=== PATIENT | female | born 1995 | race Caucasian/White ===

== ENCOUNTER 2020-09-05 18:05 | Emergency (ER) | payer MEDICAID, SELFPAY ==
--- NOTE | 2020-09-05 | XR_ITS ---
EXAMINATION: XR CHEST CLINICAL INFORMATION: Cough COMPARISON: Overt 2013 TECHNIQUE: Frontal view of the chest was obtained. FINDINGS: There is a new left lower lobe pneumonia compared to the prior study. Heart size normal. The right lung is clear. No pleural effusions seen. XR/XR chest 1V IMPRESSION: Left lower lobe pneumonia
[2020-09-05 19:02] VITALS: BP 135/71; PULSE 71; RESP 18; TEMP 36.6; O2SAT 97; BMI 45.3
--- NOTE | 2020-09-05 21:28 | ED.GENADULT ---
HPI - General Adult General Chief complaint: General Medical Stated complaint: bodyaches, chills Time Seen by Provider: 09/05/20 22:25 Source: patient Mode of arrival: ambulatory Limitations: no limitations History of Present Illness HPI narrative: Patient presents to ED for coughing, headache, and body aches. Patient denies any shortness of breath. Patient states no weakness. Patient unaware if he is exposed to COVID-19 virus Related Data Previous Rx's Medication Instructions Recorded amoxicillin 1,000 mg PO TID #30 tab 09/05/20 doxycycline monohydrate 100 mg PO BID #14 cap 09/05/20 ibuprofen 400 mg PO Q6H PRN #28 tab 09/05/20 Allergies Allergy/AdvReac Type Severity Reaction Status Date / Time No Known Allergies Allergy Unverified 07/15/20 16:16 Review of Systems Review of Systems: Yes all other systems are reviewed and are negative Constitutional: Constitutional: Reports as per HPI, Reports no additional constitutional complaints, Reports body ache(s) and Reports headache(s) Eyes: Eyes: Reports as per HPI and Reports no additional eye complaints ENT: Reports system reviewed and no additional complaints, except as documented, Reports as per HPI and Reports headache(s) Cardiovascular: Cardiovascular: Reports as per HPI, Reports no additional cardiovascular complaints, Denies chest pain, Denies chest pain at rest and Denies chest pain with activity Respiratory: Respiratory: Reports as per HPI, Reports no additional respiratory complaints and Reports pain with cough Gastrointestinal: Gastrointestinal: Reports as per HPI and Reports no additional gastrointestinal complaints Musculoskeletal: Musculoskeletal: Reports no additional musculoskeletal complaints and Reports as per HPI Neurologic: Reports system reviewed and no additional complaints, except as documented, Reports as per HPI and Reports headache(s) [facility] Past Medical History Medical History (Updated 09/06/20 @ 00:12 by Rosalio Erazo) Bipolar depression Surgical History (Updated 09/05/20 @ 19:04 by Amara Encinas) Hx of knee surgery Social History Social History Advance Directives: No Advance Directives Information Provided: Yes Physical Exam Vital Signs: Vital Signs: Last Vital Signs Temp 98 F 09/05/20 19:02 Pulse 71 09/05/20 19:02 Resp 18 09/05/20 19:02 BP 135/71 09/05/20 19:02 Pulse Ox 97 09/05/20 19:02 Body Mass Index 45.3 Const: General: cooperative, healthy appearing, comfortable, no acute distress, well developed and alert Orientation/consciousness: patient oriented x3 HENMT: Head: Yes normal to inspection and Yes No palpable skull fracture present Eyes: General: appearance normal, both eyes and all related structures Visual Ceja: normal visual ceja by confrontation Neck: Neck: Yes normal visual inspection, Yes full ROM, Yes no lymphadenopathy, Yes no meningeal signs and Yes trachea midline Chest: Chest palpation & inspection: normal inspection of the chest, normal palpation of entire chest wall and no localized rib tenderness Resp: Effort & Inspection: normal respiratory effort and able to speak in complete sentences Auscultation: clear to auscultation bilaterally, no crackles, rales, no rhonchi and no wheezes Cardio: Jugular venous distension: no JVD Heart sounds: S1 normal heart sound present and S2 normal heart sound present GI: Inspection: Yes normal to inspection and No abdominal wall ecchymosis Palpation (GI): Soft to palpation, not firm, nontender and no guarding : General: No CVA tenderness and Yes no CVA tenderness Back/Spine/Pelvis: Back: no CVA tenderness, No CVA tenderness and No back tenderness Skin: General skin exam: no rashes or lesions noted Neuro: General: patient oriented x3, no meningeal signs and CN's II-XI intact bilaterally Cranial nerves: Yes CN's II-XII intact bilaterally Psych: Appearance: grossly normal, well kempt and not disheveled Course Course Course Narrative: patient not in any distress. Patient is sent for chest x-ray, COVID swab, and rapid strep. Reevaluation(s) Reevaluation #1: chest x-ray shows left lower lobe pneumonia. Patient is not any distress. Patient will be discharged with antibiotics and told to follow-up with PCP. Patient educated on self Dallin isolation at a COVID swab come back. Time: 21:49 Medical Decision Making MDM Narrative Medical decision making narrative: pneumonia Discharge Plan Discharge Clinical Impression: Pneumonia Patient Disposition: Home, Self-Care Instructions: Community Acquired Pneumonia (ED) Additional Instructions: return to the ED immediately for any chest pain, shortness of breath, coughing up blood, weakness, or any other concerning symptoms. Recommend 14 days self-isolation and COVID test come back positive. Please follow-up with the PCP Prescriptions: New amoxicillin 500 mg tablet 1,000 mg PO TID Qty: 30 RF: 0 doxycycline monohydrate 100 mg capsule 100 mg PO BID Qty: 14 RF: 0 ibuprofen 400 mg tablet 400 mg PO Q6H PRN (Reason: fever or pain) Qty: 28 RF: 0 Interventions: ED Discharge Assessment Last Done: 09/05/20 22:19 Discharge Date/Time: 09/05/20 22:35 Print Language: Bulgarian
[2020-09-05] MEDS: Amoxicillin 500 MG CAPSULE 1000 MG PO (22:30)
== END 2020-09-05 22:35 | disposition home or self-care (01) ==
PROVIDERS: Emergency Provider Emergency Medicine; PCP Pediatrics
DX: J18.9 Pneumonia, unspecified organism (principal); R05 Cough; M79.10 Myalgia, unspecified site; Z20.828 Contact with and (suspected) exposure to other viral communicable diseases; Z79.899 Other long term (current) drug therapy
CPT/HCPCS: 71045; 87071; 87880; 99283; U0003

== ENCOUNTER 2020-09-06 10:33 | Emergency (ER) | payer MEDICAID, SELFPAY ==
[2020-09-06 11:03] VITALS: BP 156/81; PULSE 57; RESP 16; TEMP 37.4; O2SAT 99; BMI 45.3
--- NOTE | 2020-09-06 12:11 | ECG_ITS ---
Test Reason : CHEST DARI Blood Pressure : / mmHG Vent. Rate : 045 BPM Atrial Rate : 045 BPM P-R Int : 138 ms QRS Dur : 080 ms QT Int : 424 ms P-R-T Axes : 024 005 -17 degrees QTc Int : 366 ms Sinus bradycardia Nonspecific T wave abnormality Abnormal ECG When compared with ECG of 04-JAN-2012 20:30, Vent. rate has decreased BY 61 BPM T wave inversion now evident in Anterior leads Inferior leads Referred By: Mary Richardson Electronically Signed By:GALINA GALEANO MD
--- NOTE | 2020-09-06 12:12 | ED.GENADULT ---
HPI - General Adult General Chief complaint: General Medical Stated complaint: pneumonia,coughing Time Seen by Provider: 09/06/20 12:05 Source: patient Mode of arrival: ambulatory Limitations: no limitations History of Present Illness HPI narrative: 24 yo female previously healthy here with chest pain with coughing, fatigue. Seen here yesterday and diagnosed with LLL PNA yesterday.Started on doxycycline and amoxicillin. Took one dose of each medicine last evening. Here with continued symptoms of cough, chest discomfort with coughing, fatigue, low grade fevers. No SOB, leg swelling or pain. Onset (ago): day(s) Location: chest and back Radiation: non-radiation Severity: moderate Quality: sharp Pain Consistency: constant Relieving factors: none Exacerbating factors: none Associated symptoms: denies other symptoms Related Data Previous Rx's Medication Instructions Recorded amoxicillin 1,000 mg PO TID #30 tab 09/05/20 doxycycline monohydrate 100 mg PO BID #14 cap 09/05/20 ibuprofen 400 mg PO Q6H PRN #28 tab 09/05/20 Allergies Allergy/AdvReac Type Severity Reaction Status Date / Time No Known Allergies Allergy Unverified 07/15/20 16:16 Review of Systems Review of Systems: Yes all other systems are reviewed and are negative Constitutional: Constitutional: Reports no additional constitutional complaints, Denies body ache(s), Denies chills, Reports fatigue, Reports fever(s), Denies headache(s) and Denies weakness Eyes: Eyes: Reports no additional eye complaints and Denies change in vision ENT: Reports system reviewed and no additional complaints, except as documented, Denies dizziness, Denies headache(s), Denies nasal congestion, Denies nasal discharge and Denies neck pain Cardiovascular: Cardiovascular: Reports no additional cardiovascular complaints, Reports chest pain, Denies leg edema and Denies dyspnea Respiratory: Respiratory: Reports no additional respiratory complaints, Reports cough and Denies dyspnea Gastrointestinal: Gastrointestinal: Reports no additional gastrointestinal complaints, Denies abdominal pain, Denies diarrhea, Denies nausea and Denies vomiting Genitourinary: Genitourinary: Reports no additional female genitourinary complaints and Denies urinary incontinence Musculoskeletal: Musculoskeletal: Reports no additional musculoskeletal complaints, Denies back pain, Denies arthralgias, Denies joint swelling, Denies neck pain, Denies numbness and Denies tingling Integumentary/Breasts: Skin/Breast: Reports system reviewed and no additional complaints, except as docu and Denies rash Neurologic: Reports system reviewed and no additional complaints, except as documented, Denies Abnormal speech present, Denies dizziness, Denies headache(s), Denies numbness, Denies tingling and Denies weakness Endocrine: Endocrine: Reports fatigue [facility] Past Medical History Source: obtained from family and nursing notes reviewed Medical History Bipolar depression Surgical History Hx of knee surgery Social History Social History Alcohol intake: never Smoking Status: Never smoker Use of substances other than those prescribed or required for medical reasons: No Advance Directives: No Advance Directives Information Provided: Yes Physical Exam Vital Signs: Vital Signs: Last Vital Signs Temp 99.3 F 09/06/20 11:03 Pulse 50 09/06/20 13:11 Resp 22 H 09/06/20 13:11 BP 125/38 L 09/06/20 13:11 Pulse Ox 98 09/06/20 16:42 Body Mass Index 45.3 Const: General: cooperative, healthy appearing, comfortable and no acute distress Orientation/consciousness: patient oriented x3 Limitations: no limitations HENMT: Head: Yes normal to inspection Ears: hearing grossly normal bilaterally General nose exam: Normal external nose present Face and sinus: Yes normal facial exam Mouth: Normal oral and palatal mucosa present Throat: Yes posterior oropharynx normal Eyes: General: appearance normal, both eyes and all related structures Pupils: Equal, round and reactive pupils present Neck: Neck: Yes normal visual inspection Chest: Other: central chest tender to palpate, worsened with deep breathing and movement Chest palpation & inspection: normal inspection of the chest Resp: Effort & Inspection: normal respiratory effort Auscultation: clear to auscultation bilaterally Cardio: Rate: regular rate Rhythm: regular rhythm Peripheral pulses: Peripheral pulses 2+ throughout GI: Inspection: Yes normal to inspection Palpation (GI): Soft to palpation and nontender Auscultation: normal bowel sounds Back/Spine/Pelvis: Thoracic/Lumbar Spine: thoracic and lumbar spine normal to inspection Skin: General skin exam: no rashes or lesions noted Neuro: General: patient oriented x3, no focal motor deficits and normal sensation to monofilament Cranial nerves: Yes Equal, round and reactive pupils present Cognition (Neuro): normal cognition Speech: No Abnormal speech present Gait exam (Neuro): Normal gait present Motor exam (neuro): 5/5 motor strength present throughout Extrem: General: Yes normal to inspection Course Course Course Narrative: 24-year-old female here with known left lower lobe pneumonia who returns today with continued cough, musculoskeletal chest pain, fatigue and low-grade fevers. On arrival she has stable vital signs. She appears well. She is very musculoskeletal pain on exam over her central chest and back. No shortness of breath. lung sounds clear. Oxygen saturation 99%. Will check labs, EKG, give analgesia and re-assess. 1605- labs unremarkable. EKG unremarkable. Patient reports feeling improved after Toradol and IV fluids. We discussed with the patient that she should continue to take her antibiotics, alternate Motrin and Tylenol for discomfort as needed.Reviewed worrisome signs and symptoms and when to return to the emergency department. Comfortable discharge home. Medical Decision Making MDM Narrative Medical decision making narrative: Likely pneumonia based on imaging from yesterday. Could be viral syndrome and COVID testing is pending. Could be chest wall strain secondary to coughing. Less likely ACS with negative troponin and EKG. Less likely PE with no clinical signs or symptoms of PE Or DVT. No hypoxia or tachycardia. Medical Records Medical records reviewed: Yes I reviewed the patient's medical records. Lab Data Lab results reviewed: Yes I reviewed the patient's lab results. Result diagrams: 09/06/20 12:28 09/06/20 12:28 Labs: Lab Results 09/06/20 09/06/20 09/06/20 Range/Units 12:28 12:28 12:28 WBC 5.6 (4.8-10.8) X10*3/uL RBC 3.96 L (4.20-5.50) X10*6/uL Hgb 12.7 (12.0-16.0) g/dl Hct 37.3 (37-47) % MCV 94.2 (80-98) fL MCH 32.1 (27.0-33.0) pg MCHC 34.0 (31.0-35.0) g/dl RDW 11.9 (11.0-16.0) % Plt Count 218 (160-400) X10*3/uL MPV 10.6 (9.4-12.3) fL Immature Gran % (Auto) 0.2 (0.0-0.4) % Neut % (Auto) 53.0 (45-73) % Lymph % (Auto) 32.4 (20-40) % [place] % (Auto) 8.6 (2-11) % Eos % (Auto) 5.4 H (0-4) % Baso % (Auto) 0.4 (0-2) % Lymph # (Auto) 1.8 (1.2-4.9) X10*3/uL [place] # (Auto) 0.5 (0.1-1.2) X10*3/uL Eos # (Auto) 0.3 (0.0-0.4) X10*3/uL Baso # (Auto) 0.0 (0.0-0.2) X10*3/uL Abs Immat Gran (auto) 0.01 (0.00-0.03) X10*3/uL Absolute Neuts (auto) 3.0 (2.0-8.3) X10*3/uL Absolute Nucleated RBC 0.000 (0.0-0.012) X10*3/uL Nucleated RBC % (auto) 0.0 (0.0-0.2) /100WBC Sodium 141 (135-145) mmol/L Potassium 3.8 (3.3-5.1) mmol/l Chloride 107 (96-108) mmol/L Carbon Dioxide 29 (22-29) mmol/L Anion Gap 9 L (12-20) BUN 7 L (9-16) mg/dL Creatinine 0.98 (0.5-1.4) mg/dL Estim Creat Clear Calc 99.2 Estimated GFR > 60 Random Glucose 90 (60-115) mg/dL Lactic Acid 1.0 (0.5-2.0) mmol/L Calcium 8.4 (8.4-10.2) mg/dL Magnesium 2.0 (1.6-2.6) mg/dL Total Bilirubin 0.3 (0.0-1.0) mg/dL Direct Bilirubin < 0.2 (0.0-0.5) mg/dL AST 36 H (5-31) U/L ALT 53 H (0-31) U/L Alkaline Phosphatase 60 (39-117) U/L Troponin I High Sens (<3.5-17.0) ng/L Total Protein 6.4 L (6.5-8.0) g/dL Albumin 3.6 (3.5-5.0) g/dL 09/06/20 Range/Units 15:03 WBC (4.8-10.8) X10*3/uL RBC (4.20-5.50) X10*6/uL Hgb (12.0-16.0) g/dl Hct (37-47) % MCV (80-98) fL MCH (27.0-33.0) pg MCHC (31.0-35.0) g/dl RDW (11.0-16.0) % Plt Count (160-400) X10*3/uL MPV (9.4-12.3) fL Immature Gran % (Auto) (0.0-0.4) % Neut % (Auto) (45-73) % Lymph % (Auto) (20-40) % [place] % (Auto) (2-11) % Eos % (Auto) (0-4) % Baso % (Auto) (0-2) % Lymph # (Auto) (1.2-4.9) X10*3/uL [place] # (Auto) (0.1-1.2) X10*3/uL Eos # (Auto) (0.0-0.4) X10*3/uL Baso # (Auto) (0.0-0.2) X10*3/uL Abs Immat Gran (auto) (0.00-0.03) X10*3/uL Absolute Neuts (auto) (2.0-8.3) X10*3/uL Absolute Nucleated RBC (0.0-0.012) X10*3/uL Nucleated RBC % (auto) (0.0-0.2) /100WBC Sodium (135-145) mmol/L Potassium (3.3-5.1) mmol/l Chloride (96-108) mmol/L Carbon Dioxide (22-29) mmol/L Anion Gap (12-20) BUN (9-16) mg/dL Creatinine (0.5-1.4) mg/dL Estim Creat Clear Calc Estimated GFR Random Glucose (60-115) mg/dL Lactic Acid (0.5-2.0) mmol/L Calcium (8.4-10.2) mg/dL Magnesium (1.6-2.6) mg/dL Total Bilirubin (0.0-1.0) mg/dL Direct Bilirubin (0.0-0.5) mg/dL AST (5-31) U/L ALT (0-31) U/L Alkaline Phosphatase (39-117) U/L Troponin I High Sens < 3.5 (<3.5-17.0) ng/L Total Protein (6.5-8.0) g/dL Albumin (3.5-5.0) g/dL ECG Data Attestation: I personally reviewed and interpreted this ECG as follows: Interpretation: Sinus bradycardia with rate 45, normal pr, normal qrs, normal qt, nonspecific ST changes Discharge Plan Discharge Clinical Impression: Pneumonia Qualifiers: Pneumonia type: due to unspecified organism Laterality: left Lung location: lower lobe of lung Qualified Code(s): J18.9 - Pneumonia, unspecified organism Patient Disposition: Home, Self-Care Instructions: Bacterial Pneumonia (ED) Additional Instructions: continue taking her antibiotics Alternate Motrin and Tylenol for pain or fever Prescriptions: No Action amoxicillin 500 mg tablet 1,000 mg PO TID Qty: 30 RF: 0 doxycycline monohydrate 100 mg capsule 100 mg PO BID Qty: 14 RF: 0 ibuprofen 400 mg tablet 400 mg PO Q6H PRN (Reason: fever or pain) Qty: 28 RF: 0 Referrals: [facility] [place] [Primary Care Provider] - 2 days
[2020-09-06 12:40] LABS: MANUAL DIFF FLAG NO
[2020-09-06 12:46] LABS: Basophils Percent Auto 0.4 % (0-2); Eosinophils Absolute Auto 0.3 X10*3/uL (0.0-0.4); Eosinophils Percent Auto 5.4 % (0-4); Hematocrit 37.3 % (37-47); Hemoglobin 12.7 g/dl (12.0-16.0); Imm Gran Abs Auto 0.01 X10*3/uL (0.00-0.03); Imm Gran Pct Auto 0.2 % (0.0-0.4); Lymphocytes Absolute Auto 1.8 X10*3/uL (1.2-4.9); Lymphocytes Percent Auto 32.4 % (20-40); Mean Corpuscular Hemoglobin 32.1 pg (27.0-33.0); Mean Corpuscular Volume 94.2 fL (80-98); Mean Platelet Volume 10.6 fL (9.4-12.3); Monocytes Absolute Auto 0.5 X10*3/uL (0.1-1.2); Monocytes Percent Auto 8.6 % (2-11); Platelet Count 218 X10*3/uL (160-400); Red Blood Count 3.96 X10*6/uL (4.20-5.50); Red Cell Distribution Width 11.9 % (11.0-16.0); White Blood Count 5.6 X10*3/uL (4.8-10.8)
[2020-09-06] MEDS: Ketorolac Tromethamine 30 MG/ML VIAL IVPUSH (12:49)
[2020-09-06] MEDS: 0.9 % Sodium Chloride 1,000 ML 999 ML IV (12:49)
[2020-09-06 13:10] LABS: Alanine Aminotransferase 53 U/L (0-31); Albumin Level 3.6 g/dL (3.5-5.0); Alkaline Phosphatase 60 U/L (39-117); Aspartate Amino Transferase 36 U/L (5-31); Blood Urea Nitrogen 7 mg/dL (9-16); Calcium 8.4 mg/dL (8.4-10.2); Creatinine Clr Calc Pharmacy 99.2; Estimated Glomerular Filt Rate > 60; Glucose Random 90 mg/dL (60-115); Total Protein 6.4 g/dL (6.5-8.0)
[2020-09-06 13:11] VITALS: BP 125/38; PULSE 50; RESP 22; O2SAT 99
[2020-09-06 13:27] LABS: Anion Gap 9 (12-20); Bilirubin Direct < 0.2 mg/dL (0.0-0.5); Bilirubin Total 0.3 mg/dL (0.0-1.0); Carbon Dioxide 29 mmol/L (22-29); Chloride 107 mmol/L (96-108); Potassium 3.8 mmol/l (3.3-5.1); Sodium 141 mmol/L (135-145)
[2020-09-06 15:43] LABS: Troponin-I High Sensitivity < 3.5 ng/L (<3.5-17.0)
[2020-09-06 16:42] VITALS: O2SAT 98
== END 2020-09-06 17:21 | disposition home or self-care (01) ==
PROVIDERS: Nurse Practitioner Family; Emergency Provider Emergency Medicine
DX: J18.9 Pneumonia, unspecified organism (principal); Z20.828 Contact with and (suspected) exposure to other viral communicable diseases; Z79.899 Other long term (current) drug therapy
CPT/HCPCS: 36415; 80048; 80076; 83605; 83735; 84484; 85025; 87040; 93005; 96361; 96374; 99284; J1885

== ENCOUNTER 2021-02-02 12:11 | Emergency (ER) | payer MEDICAID, SELFPAY ==
--- NOTE | ~2021-02-02 | XR_ITS ---
EXAMINATION: XR KNEE, LEFT CLINICAL INFORMATION: Twisting injury COMPARISON: February 07, 2018 TECHNIQUE: Four views of the left knee. FINDINGS: There is no evidence of acute fracture or dislocation of the left knee. There is a left knee effusion present. Joint spaces are maintained. There are some mixed lytic and sclerotic regions seen about the distal femur and proximal tibia with the appearance of cruciate ligament repair. A density seen on AP view between the tibial spines. XR/XR knee LT 4V IMPRESSION: No evidence of acute fracture or dislocation of the left knee. Left knee effusion. Postoperative changes.
[2021-02-02 12:42] VITALS: BP 133/72; PULSE 52; RESP 14; TEMP 36.3; O2SAT 98; BMI 42.0
--- NOTE | 2021-02-02 13:28 | ED_ITS ---
HPI - Extremity Injury (Lower) General Chief Complaint: Extremity Injury, Lower Stated Complaint: lt knee pain Time Seen by Provider: 02/02/21 12:44 Source: patient Mode of arrival: ambulatory History of Present Illness HPI Narrative: 25-year-old female with a past medical history of bipolar, prior left ACL surgery, presenting to the ED complaining of left knee pain s/p twisting injury last night after playing with daughter & hearing multiple cracks. Reports swelling and bruising to left knee. Has been ambulating with pain/difficulty. Denies direct injury/trauma to area, numbness/tingling, fever MD complaint: knee injury Related Data Previous Rx's Medication Instructions Recorded amoxicillin 1,000 mg PO TID #30 tab 09/05/20 doxycycline monohydrate 100 mg PO BID #14 cap 09/05/20 ibuprofen 400 mg PO Q6H PRN #28 tab 09/05/20 Allergies Allergy/AdvReac Type Severity Reaction Status Date / Time No Known Allergies Allergy Unverified 07/15/20 16:16 Review of Systems Review of Systems: Constitutional: No Fever, No Chills Musculoskeletal: + joint pain, No Myalgias, + Joint Swelling Skin: No Skin Lesions, No rash Neuro: No Weakness, No Numbness, No Paresthesias Yes all other systems are reviewed and are negative [facility] Past Medical History Attestation statement: The following information was validated with the patient. Medical History Bipolar depression Surgical History Hx of knee surgery Social History Social History Alcohol intake: never Smoking Status: Current every day smoker Use of substances other than those prescribed or required for medical reasons: Yes Substance Use Type: Marijuana Substance Use Frequency: Daily Advance Directives: Yes Advance Directives Information Provided: No Advance Directives on File: No Physical Exam Vital Signs: Vital Signs: Last Vital Signs Temp 97.4 F 02/02/21 12:42 Pulse 52 02/02/21 12:42 Resp 14 02/02/21 12:42 BP 133/72 02/02/21 12:42 Pulse Ox 98 02/02/21 12:42 Body Mass Index 42.0 Const: General: cooperative and healthy appearing Orienta tion/consciousness: patient oriented x3 Limitations: no limitations HENMT: Head: Yes normal to inspection Ears: hearing grossly normal bilaterally General nose exam: Normal external nose present Face and sinus: Yes normal facial exam Eyes: General: appearance normal, both eyes and all related structures EOM: EOMs intact bilaterally Neck: Neck: Yes normal visual inspection Resp: Effort & Inspection: normal respiratory effort Cardio: Rate: regular rate Peripheral pulses: dorsalis pedis present GI: Inspection: Yes normal to inspection Skin: Rashes: no rashes Wounds: no wounds Neuro: General: patient oriented x3 Extrem: Other: Left knee with notable swelling and ecchymosis. Tender to palpation > medial aspect. Limited flexion secondary to pain. Neurovascularly intact distally General: Yes normal to inspection Course Course Course Narrative: XR knee LT 4V IMPRESSION: No evidence of acute fracture or dislocation of the left knee. Left knee effusion. Postoperative changes >> Dallin wrap applied for comfort/stability MDM - Extremity Injury (Lower) MDM Narrative Medical decision making narrative: 25-year-old female with a past medical history of bipolar, prior left ACL surgery, presenting to the ED complaining of left knee pain s/p twisting injury last night after playing with daughter & hearing multiple cracks. On exam VSS, NAD, physical exam as above. Concern for ligamental/tendon injury or meniscal injury due to MAO. Lower concern for fracture/dislocation Plan: X-rays Discharge Plan Discharge Clinical Impression: Effusion of left knee Patient Disposition: Home, Self-Care Instructions: Swollen Knee Joint (ED) Additional Instructions: Your knee x-ray did not show any acute fracture or dislocation however does show a knee effusion. Wear Dallin wrap at home for comfort/stability Follow-up with support specialist you probably need an MRI Ice, elevate, rest Take Tylenol and Motrin for pain/swelling Prescriptions: No Action amoxicillin 500 mg tablet 1,000 mg PO TID Qty: 30 RF: 0 doxycycline monohydrate 100 mg capsule 100 mg PO BID Qty: 14 RF: 0 ibuprofen 400 mg tablet 400 mg PO Q6H PRN (Reason: fever or pain) Qty: 28 RF: 0 Referrals: [facility] [Primary Care Provider] - 2 days Cong Kilgore PA-C [Physician Bulk Station Operator] - 1 week
== END 2021-02-02 14:35 | disposition home or self-care (01) ==
PROVIDERS: Emergency Provider Emergency Medicine Emergency Medical Services
DX: M25.462 Effusion, left knee (principal); M25.562 Pain in left knee
CPT/HCPCS: 73564; 99283

== ENCOUNTER 2021-12-21 19:59 | Emergency (ER) | payer MEDICAID, SELFPAY ==
[2021-12-21 20:05] VITALS: BP 134/95; PULSE 52; RESP 16; TEMP 36.5; O2SAT 100; BMI 23.2
[2021-12-21 20:44] LABS: UPreg QC Valid YES; Urine Pregnancy NEGATIVE (NEGATIVE)
[2021-12-21 21:40] VITALS: BP 112/65; PULSE 50; RESP 16; TEMP 36.5; O2SAT 100
--- NOTE | 2021-12-21 21:47 | PC.NURSE ---
pt a&o x3, vss. last period is a week late, had a faintly pos test ~5 days ago. started having cramping and abd pain 2-3 days ago, worse last night and today. started bleeding heavily this afternoon - more than normal period, pt noticed small blood clots. pt denies nausea, vomiting, diarrhea. some dizziness.
[2021-12-21 21:52] VITALS: BP 112/65; PULSE 50; RESP 15; TEMP 37; O2SAT 98
--- NOTE | 2021-12-21 21:52 | ED.GENADULT ---
HPI - General Adult General Chief complaint: General Medical Stated complaint: rt lower side abd pain and heavy vaginal bleeding Time Seen by Provider: 12/21/21 21:51 Source: patient Mode of arrival: ambulatory Limitations: no limitations History of Present Illness HPI narrative: right sided pelvic pain starting 3 days ago. Denies vaginal discharge, no recent STDs, no dysuria, Currently having her period, she is 7 days late, no abdominal surgeries, no history of ovarian cyst. Onset (ago): day(s) Severity: mild Quality: sharp Associated symptoms: denies other symptoms Related Data Previous Rx's Medication Instructions Recorded amoxicillin 500 mg tablet 1,000 mg PO TID #30 tab 09/05/20 doxycycline monohydrate 100 mg 100 mg PO BID #14 cap 09/05/20 capsule ibuprofen 400 mg tablet 400 mg PO Q6H PRN #28 tab 09/05/20 naproxen 500 mg tablet (Naprosyn) 500 mg PO BID #20 tab 12/21/21 Allergies Allergy/AdvReac Type Severity Reaction Status Date / Time No Known Allergies Allergy Verified 12/21/21 20:09 Review of Systems Constitutional: Constitutional: Reports no additional constitutional complaints Eyes: Eyes: Reports no additional eye complaints ENT: Denies dizziness Cardiovascular: Cardiovascular: Reports no additional cardiovascular complaints Respiratory: Respiratory: Reports as per HPI Gastrointestinal: Gastrointestinal: Reports no additional gastrointestinal complaints Genitourinary: Genitourinary: Reports no additional female genitourinary complaints Musculoskeletal: Musculoskeletal: Reports no additional musculoskeletal complaints Integumentary/Breasts: Skin/Breast: Denies rash Neurologic: Reports system reviewed and no additional complaints, except as documented, Denies dizziness and Denies Sensory deficit (Neuro) Psychiatric: Psychiatric: Denies anxiety PMFSH Past Medical History Medical History Bipolar depression Surgical History Hx of knee surgery Social History Social History Alcohol intake: never Patient Tobacco Use Status: Current everyday Tobacco user Smoked in Last 30 Days: Yes Use of substances other than those prescribed or required for medical reasons: Yes Substance Use Type: Marijuana Substance Use Frequency: Daily Substance Use Frequency Other:: Edibles - for sleep Last Used Substance: Days (ago) Any prior treatment program specific to substance use: No Advance Directives: No Physical Exam ED Vital Signs: Vital Signs - 24 hr 12/21/21 20:05 12/21/21 21:40 12/21/21 21:52 Temperature 97.7 F 97.7 F 98.6 F Pulse Rate 52 50 50 Respiratory Rate 16 16 15 Blood Pressure 134/95 H 112/65 112/65 Pulse Oximetry 100 100 98 BMI result Body Mass Index 23.2 Const General: healthy appearing Nutritional Appearance: average body habitus Orientation/consciousness: oriented to person and patient oriented x3 Limitations: no limitations HENMT Head: Yes normal to inspection Ears: external ears normal General nose exam: Normal external nose present Mouth: Normal oral and palatal mucosa present and oropharynx normal Throat: Yes posterior oropharynx normal Eyes General: appearance normal, both eyes and all related structures Neck Neck: Yes normal visual inspection Chest Chest palpation & inspection: normal inspection of the chest Resp Auscultation: clear to auscultation bilaterally Cardio Jugular venous distension: no JVD Rate: regular rate Rhythm: regular rhythm Heart sounds: S1 normal heart sound present and S2 normal heart sound present GI Other: very mild right pelvic pain, not McBurneys point Inspection: Yes normal to inspection Palpation (GI): Soft to palpation, nontender and No hepatosplenomegaly present Auscultation: normal bowel sounds Other: normal vagina, small blood in vault, no uterine tenderness, mild right ovarian tenderness General: Yes no CVA tenderness Back/Spine/Pelvis Back: no CVA tenderness Skin General skin exam: no rashes or lesions noted Neuro General: oriented to person and patient oriented x3 Cranial nerves: Yes CN's II-XII intact bilaterally Motor exam (neuro): 5/5 motor strength present throughout Sensory Exam: No Sensory deficit (Neuro) Extrem General: Yes normal to inspection Psych Appearance: grossly normal Course Reevaluation(s) Reevaluation #1: Patient with dysmenorrhea will dc on NSAIDS Time: 22:45 Medical Decision Making Lab Data Labs: Lab Results 12/21/21 12/21/21 Range/Units 20:20 20:20 Urine Color YELLOW Urine Appearance CLEAR Urine pH 5.5 (5.0-8.0) Ur Specific Amigo >= 1.030 H (1.005-1.025) Urine Protein NEG (NEG-TRACE) MG/DL Urine Glucose (UA) NEG (NEG) MG/DL Urine Ketones NEG (NEG) MG/DL Urine Blood 3+ H (NEG) Urine Nitrite NEG (NEG) Ur Leukocyte Esterase NEG (NEG) Urine RBC 15-29 H (0) /HPF Urine WBC 0-2 (0-4) /HPF Ur Squamous Epith Cells 3+ /LPF Amorphous Sediment TRACE /LPF Urine Bacteria NONE /LPF Urine Mucus 3+ /LPF Urine Test NEGATIVE (NEGATIVE) Discharge Plan Discharge Clinical Impression: Dysmenorrhea Patient Disposition: Home, Self-Care Instructions: Dysmenorrhea (ED) Prescriptions: New naproxen [Naprosyn] 500 mg tablet 500 mg PO BID Qty: 20 0RF No Action amoxicillin 500 mg tablet 1,000 mg PO TID Qty: 30 0RF doxycycline monohydrate 100 mg capsule 100 mg PO BID Qty: 14 0RF ibuprofen 400 mg tablet 400 mg PO Q6H PRN (Reason: fever or pain) Qty: 28 0RF Referrals: [facility] [Primary Care Provider] - 1 week
[2021-12-21 22:06] LABS: Appearance Urine CLEAR; Color Urine YELLOW; Glucose Urine UA NEG (NEG); Leukocyte Esterase Urine NEG (NEG); Nitrite Urine NEG (NEG); PH 5.5 (5.0-8.0); Specific Gravity - Urine >= 1.030 (1.005-1.025); Urine Blood 3+ (NEG); Urine Ketones NEG (NEG); Urine Protein NEG (NEG-TRACE)
[2021-12-21 22:25] LABS: Amorphous Sediment Urine TRACE /LPF; Mucus Urine 3+ /LPF; Squamous Epithelial Cell Urine 3+ /LPF; WBC Urine 0-2 /HPF (0-4)
[2021-12-21] MEDS: Ketorolac Tromethamine 60 MG/2 ML VIAL IM (22:43)
[2021-12-22 01:04] LABS: CT PCR NOT DETECTED (Not Detect.); NG PCR NOT DETECTED (Not Detect.)
== END 2021-12-21 23:34 | disposition home or self-care (01) ==
PROVIDERS: Emergency Provider Emergency Medicine
DX: N94.6 Dysmenorrhea, unspecified (principal); F17.200 Nicotine dependence, unspecified, uncomplicated; F12.90 Cannabis use, unspecified, uncomplicated
CPT/HCPCS: 81001; 81003; 81025; 87491; 87591; 96372; 99284; J1885

== ENCOUNTER 2022-01-21 13:00 | Emergency (ER) | payer MEDICAID, SELFPAY ==
--- NOTE | ~2022-01-21 | XR_ITS ---
EXAMINATION: XR FINGER, RIGHT CLINICAL INFORMATION: Second digit tips shunt in a car door. COMPARISON: None TECHNIQUE: 3 views of the right second. FINDINGS: There is a small nondisplaced phalangeal tuft fracture. No major soft tissue swelling seen. Rest of the digits, PIPand DIP joints are normal. XR/XR finger RT min 2V IMPRESSION: Nondisplaced phalangeal tuft fracture second digit.
[2022-01-21 13:10] VITALS: BP 150/80; PULSE 95; RESP 18; TEMP 36.6; O2SAT 96; BMI 26.9
[2022-01-21 13:39] LABS: UPreg QC Valid YES; Urine Pregnancy NEGATIVE (NEGATIVE)
[2022-01-21] MEDS: Diphth,Pertus(ACell),Tet Adult 0.5 ML SYRINGE IM (14:18)
--- NOTE | 2022-01-21 14:18 | ED.EXTPRO ---
HPI - Extremity Problem General Chief complaint: Extremity Injury, Upper Stated complaint: Finger inj Time Seen by Provider: 01/21/22 14:05 Source: patient Mode of arrival: ambulatory Limitations: no limitations History of Present Illness HPI Narrative: 26 yo female presenting with right index finger pain after she accidentally shut her finger in a car door. She immediately tried pulling it out and it caused more pain. When she got it out she noticed a cut through her nail with some bleeding. She cleaned it with soap and water. She reports pain of the tip of the finger and pain with flexing the DIP. She states the tip feels slightly numb. She is right hand dominant. She is unsure when her last tetanus shot was. Complaint: joint swelling and joint pain Onset (ago): day(s) (1) Pain Consistency: constant Location: right and upper extremity Severity scale (1-10): 6 Radiation: proximal Relieving factors: cold therapy and immobilization Exacerbating factors: range of motion and palpation Associated symptoms: denies other symptoms Related Data Previous Rx's Medication Instructions Recorded amoxicillin 500 mg tablet 1,000 mg PO TID #30 tab 09/05/20 doxycycline monohydrate 100 mg 100 mg PO BID #14 cap 09/05/20 capsule ibuprofen 400 mg tablet 400 mg PO Q6H PRN #28 tab 09/05/20 naproxen 500 mg tablet (Naprosyn) 500 mg PO BID #20 tab 12/21/21 Allergies Allergy/AdvReac Type Severity Reaction Status Date / Time No Known Allergies Allergy Verified 12/21/21 20:09 Review of Systems Review of Systems: Constitutional: No Fever, No Chills Cardiovascular: No Chest Pain, No SOB Gastrointestinal: No Nausea, No Vomiting Musculoskeletal: + joint pain, No Myalgias Skin: + Skin Lesions, No rash Neuro: No Weakness, + Numbness Psych: + Anxiety/Panic Heme/Lymph: +Bruising PMFSH Past Medical History Medical History Bipolar depression Surgical History Hx of knee surgery Social History Social History Alcohol intake: never Patient Tobacco Use Status: Current everyday Tobacco user Substance Use Type: Marijuana Advance Directives: No Advance Directives Information Provided: No Patient : No Physical Exam Vital Signs: Vital Signs: Last Vital Signs Temp 98 F 01/21/22 13:10 Pulse 95 01/21/22 13:10 Resp 18 01/21/22 13:10 BP 150/80 H 01/21/22 13:10 Pulse Ox 96 01/21/22 13:10 BMI result Body Mass Index 26.9 Appearance: Alert. Oriented X3. No acute distress. HEENT: normal inspection CVS: Normal heart rate and rhythm. Pulses normal. Respiratory: No respiratory distress. Skin: Skin warm and dry. Normal skin color. Normal skin turgor. No rashes. Extremities: right index finger with distal swelling. tenderness and decreased ROM of the DIP. cap refill <3 sec. superficial laceration involving the lateral aspect of the nail. normal MCPs and normal right wrist. Neuro: Oriented X 3. No motor deficit. No sensory deficit. Course Course Course Narrative: 26-year-old female presents to the ER with distal right index finger pain after she should in a car door yesterday. She states she pulled back on her finger once it was in there causing more pain. She states the tip of her finger is slightly numb. She sustained a laceration through the finger nail bed. She is unsure when her last tetanus shot was. X-rays are pending. Reevaluation(s) Reevaluation #1: Tdap given. Area was cleansed with hydrogen peroxide and saline combination. Bacitracin and dry sterile dressing applied. X-ray showing a nondisplaced phalangeal tuft fracture of the 2nd digit. A splint was placed for mobilization. She is stable for discharge home with supportive care and outpatient follow-up. MDM - Extremity (Nontraumatic) Lab Data Labs: Lab Results 01/21/22 Range/Units 13:25 Urine Test NEGATIVE (NEGATIVE) Critical Care Time Critical Care Time Critical Care Time: No Discharge Plan Discharge Clinical Impression: Closed fracture of tuft of distal phalanx of finger Patient Disposition: Home, Self-Care Instructions: Finger Fracture (ED) Additional Instructions: Your x-ray today showed nondisplaced phalangeal tuft fracture of the 2nd digit This will get better with time and immbolization. Wear the provided splint until better Use ice as need for swelling and pain Take Motrin and/or Tylenol as needed for pain. Follow up with your doctor as needed. If you develop new or worsening symptoms call 911 or come back to the ER for further evaluation. Prescriptions: No Action amoxicillin 500 mg tablet 1,000 mg PO TID Qty: 30 0RF doxycycline monohydrate 100 mg capsule 100 mg PO BID Qty: 14 0RF ibuprofen 400 mg tablet 400 mg PO Q6H PRN (Reason: fever or pain) Qty: 28 0RF naproxen [Naprosyn] 500 mg tablet 500 mg PO BID Qty: 20 0RF Referrals: [facility] [Primary Care Provider] - 2 days
== END 2022-01-21 15:11 | disposition home or self-care (01) ==
PROVIDERS: Emergency Provider Emergency Medicine
DX: S62.660A Nondisplaced fracture of distal phalanx of right index finger, initial encounter for closed fracture (principal); W23.1XXA Caught, crushed, jammed, or pinched between stationary objects, initial encounter; Y93.89 Activity, other specified; Y92.810 Car as the place of occurrence of the external cause; Y99.9 Unspecified external cause status
CPT/HCPCS: 29130; 73140; 81025; 90471; 90715; 99284

== ENCOUNTER 2022-02-09 15:48 | Emergency (ER) | payer MEDICAID, SELFPAY ==
[2022-02-09 16:09] VITALS: BP 132/84; PULSE 60; RESP 16; TEMP 36.1; O2SAT 100; BMI 27.0
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
== END 2022-02-09 17:16 | disposition home or self-care (01) ==
PROVIDERS: Emergency Provider Emergency Medicine
DX: S80.812A Abrasion, left lower leg, initial encounter (principal); S70.12XA Contusion of left thigh, initial encounter; F12.90 Cannabis use, unspecified, uncomplicated; F17.200 Nicotine dependence, unspecified, uncomplicated; V13.5XXA Pedal cycle passenger injured in collision with car, pick-up truck or van in traffic accident, initial encounter; Y93.9 Activity, unspecified; Y92.410 Unspecified street and highway as the place of occurrence of the external cause; Y99.9 Unspecified external cause status; Z71.6 Tobacco abuse counseling; Z79.899 Other long term (current) drug therapy
CPT/HCPCS: 99283

== ENCOUNTER 2022-06-06 10:51 | Outpatient (REF) | payer MEDICAID, SELFPAY ==
--- NOTE | ~2022-06-06 | US_ITS ---
EXAMINATION: US DIAGNOSTIC ULTRASOUND BREAST, RIGHT US DIAGNOSTIC ULTRASOUND BREAST, LEFT CLINICAL INFORMATION: Age 26 with bilateral mastodynia on and off for approximately 1 month. No erythema. No palpable mass. Scant right milky nipple discharge with squeezing. No spontaneous discharge. No known family history breast cancer. No prior breast imaging. COMPARISON: None (current study represents initial baseline exam). TECHNIQUE: Ultrasound of both breasts is targeted to the areas of mastodynia. Grayscale imaging and color Doppler are performed without and with harmonics. Left breast is targeted for o'clock through 8:00 position. Right breast is targeted to the retroareolar, periareolar, and 4:00 through 9:00 position. FINDINGS: Right: There is no focal suspicious finding. There is no cystic or solid mass, architectural abnormality, duct ectasia, or edema in the soft tissue planes. Left: There is no focal suspicious finding. There is no cystic or solid mass, architectural abnormality, duct ectasia, or edema in the soft tissue planes. Results are discussed with the patient at time of visit. There is no nipple discharge is spontaneous or persistent, further evaluation may be considered with mammography and/or MRI. US/US breast LT limited IMPRESSION: Normal study. ASSESSMENT: BI-RADS 1: Negative RECOMMENDATION: -Patient should be managed based on the clinical impression. This patient's information was entered into a reminder system with a target due date for their next breast imaging.
--- NOTE | ~2022-06-06 | US_ITS ---
EXAMINATION: US DIAGNOSTIC ULTRASOUND BREAST, RIGHT US DIAGNOSTIC ULTRASOUND BREAST, LEFT CLINICAL INFORMATION: Age 26 with bilateral mastodynia on and off for approximately 1 month. No erythema. No palpable mass. Scant right milky nipple discharge with squeezing. No spontaneous discharge. No known family history breast cancer. No prior breast imaging. COMPARISON: None (current study represents initial baseline exam). TECHNIQUE: Ultrasound of both breasts is targeted to the areas of mastodynia. Grayscale imaging and color Doppler are performed without and with harmonics. Left breast is targeted for o'clock through 8:00 position. Right breast is targeted to the retroareolar, periareolar, and 4:00 through 9:00 position. FINDINGS: Right: There is no focal suspicious finding. There is no cystic or solid mass, architectural abnormality, duct ectasia, or edema in the soft tissue planes. Left: There is no focal suspicious finding. There is no cystic or solid mass, architectural abnormality, duct ectasia, or edema in the soft tissue planes. Results are discussed with the patient at time of visit. There is no nipple discharge is spontaneous or persistent, further evaluation may be considered with mammography and/or MRI. US/US breast RT limited IMPRESSION: Normal study. ASSESSMENT: BI-RADS 1: Negative RECOMMENDATION: -Patient should be managed based on the clinical impression. This patient's information was entered into a reminder system with a target due date for their next breast imaging.
== END 2022-06-06 10:52 | disposition home or self-care (01) ==
LOC: HO.MAMMO 10:51
PROVIDERS: Visit Provider Internal Medicine
DX: N64.4 Mastodynia (principal); N64.52 Nipple discharge
CPT/HCPCS: 76642

== ENCOUNTER 2023-01-20 07:17 | Emergency (ER) | payer MEDICAID, SELFPAY ==
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
[2023-01-20 07:23] VITALS: BP 111/80; BP 136/86; PULSE 72; PULSE 98; RESP 20; TEMP 37.1; O2SAT 99; BMI 29.2
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
--- NOTE | 2023-01-20 08:11 | MHC.CARE ---
CARE Team attempted to call [facility] multiple times- VM left with agronomy advisor weekend staff requesting a return call
[2023-01-20] MEDS: Lidocaine HCl 1 % MPF 5 ML VIAL INFILTRATI (08:13)
[2023-01-20] MEDS: LORazepam 1 MG TABLET PO (08:13)
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
[2023-01-20 09:38] VITALS: BP 152/90; PULSE 119; RESP 15; TEMP 36.7; O2SAT 98
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
[2023-01-20] MEDS: Ibuprofen 800 MG TABLET PO (11:04)
--- NOTE | 2023-01-22 09:31 | MHC.CARE ---
@ 9:23AM filled out referral form and emailed to [facility].
== END 2023-01-20 11:27 | disposition home or self-care (01) ==
PROVIDERS: Emergency Provider Emergency Medicine
DX: S51.812A Laceration without foreign body of left forearm, initial encounter (principal); X78.9XXA Intentional self-harm by unspecified sharp object, initial encounter; F17.200 Nicotine dependence, unspecified, uncomplicated; F12.90 Cannabis use, unspecified, uncomplicated; S80.01XA Contusion of right knee, initial encounter; S83.91XA Sprain of unspecified site of right knee, initial encounter; Y04.2XXA Assault by strike against or bumped into by another person, initial encounter; Y93.89 Activity, other specified; Y92.039 Unspecified place in apartment as the place of occurrence of the external cause; Y99.9 Unspecified external cause status
CPT/HCPCS: 12004; 73564; 99284

== ENCOUNTER → 2023-02-14 10:27 | Outpatient (BNVA) | payer MEDICAID, SELFPAY | PROVIDERS: Visit Provider Physician Assistant | DX: M23.91 Unspecified internal derangement of right knee (principal); M22.41 Chondromalacia patellae, right knee; S83.411A Sprain of medial collateral ligament of right knee, initial encounter; W01.0XXA Fall on same level from slipping, tripping and stumbling without subsequent striking against object, initial encounter; Y93.89 Activity, other specified; Y92.9 Unspecified place or not applicable; Y99.8 Other external cause status; Z79.899 Other long term (current) drug therapy | CPT/HCPCS: 99202 ==

== ENCOUNTER 2023-02-25 14:11 | Emergency (ER) | payer MEDICAID, SELFPAY ==
[2023-02-25 14:27] VITALS: BP 112/71; PULSE 55; RESP 16; TEMP 36.8; O2SAT 99; BMI 30.5
--- NOTE | 2023-02-25 14:29 | ED_ITS ---
HPI - General Adult General Chief complaint: Upper Respiratory Symptoms <JJ Kramer - Last Filed: 02/27/23 11:10> Stated complaint: migraine since 02/23/ sore throat <JJ Kramer - Last Filed: 02/27/23 11:10> Time Seen by Provider: 02/25/23 14:58 <JJ Kramer - Last Filed: 02/27/23 11:10> Source: patient <Mary Oneill NP - Last Filed: 02/25/23 15:17> Mode of arrival: ambulatory <Mary Oneill NP - Last Filed: 02/25/23 15:17> Limitations: no limitations <PUNEET Saavedra Last Filed: 02/25/23 15:17> History of Present Illness HPI narrative: 27-year-old female healthy here with complaints of sore throat, cough, chills, feeling lightheaded since Sunday. Patient denies any recent travel or sick contact. No fevers, difficulty breathing, chest pain, vomiting, diarrhea, abdominal pain, neck pain or neck stiffness, skin rash. Patient was seen at urgent care initially and diagnosed with conjunctivitis and prescribed an antibiotic drop which she has been taking. She feels that there is less drainage and irritation from her eyes. <Mary Oneill NP - Last Filed: 02/25/23 15:17> Related Data Home medications: Home Medications Medication Instructions Recorded Confirmed buprenorphine 2 mg-naloxone 0.5 mg 2 mg sublingual DAILY 02/14/23 02/14/23 sublingual film (Suboxone) <JJ Kramer Last Filed: 02/27/23 11:10> Allergies/adverse reactions: Allergies Allergy/AdvReac Type Severity Reaction Status Date / Time No Known Allergies Allergy Verified 02/25/23 14:27 <JJ Kramer Last Filed: 02/27/23 11:10> Review of Systems Review of Systems: Yes all other systems are reviewed and are negative <PUNEET Saavedra Last Filed: 02/25/23 15:17> Constitutional: Constitutional: Reports no additional constitutional complaints, Denies body ache(s), Reports chills, Denies fever(s), Reports h eadache(s) and Denies weakness <Mary Oneill CHIEF POWER DISPATCHER - Last Filed: 02/25/23 15:17> Eyes: Eyes: Reports no additional eye complaints and Denies change in vision <Mary Oneill, CHIEF POWER DISPATCHER - Last Filed: 02/25/23 15:17> ENT: Reports system reviewed and no additional complaints, except as documented, Reports dizziness, Reports headache(s), Denies nasal congestion, Denies nasal discharge, Denies neck pain and Reports sore throat <Mary Oneill, CHIEF POWER DISPATCHER - Last Filed: 02/25/23 15:17> Cardiovascular: Cardiovascular: Reports no additional cardiovascular complaints, Denies chest pain, Denies leg edema and Denies dyspnea <Mary Oneill, CHIEF POWER DISPATCHER - Last Filed: 02/25/23 15:17> Respiratory: Respiratory: Reports no additional respiratory complaints, Reports cough and Denies dyspnea <Mary Oneill, CHIEF POWER DISPATCHER - Last Filed: 02/25/23 15:17> Gastrointestinal: Gastrointestinal: Reports no additional gastrointestinal complaints, Denies abdominal pain, Denies diarrhea, Denies nausea and Denies vomiting <Mary Oneill, CHIEF POWER DISPATCHER - Last Filed: 02/25/23 15:17> Genitourinary: Genitourinary: Reports no additional female genitourinary complaints and Denies urinary incontinence <Mary Oneill, CHIEF POWER DISPATCHER - Last Filed: 02/25/23 15:17> Musculoskeletal: Musculoskeletal: Reports no additional musculoskeletal complaints, Denies back pain, Denies arthralgias, Denies joint swelling, Denies neck pain, Denies numbness and Denies tingling <Mary Oneill, CHIEF POWER DISPATCHER - Last Filed: 02/25/23 15:17> Integumentary/Breasts: Skin/Breast: Reports system reviewed and no additional complaints, except as docu and Denies rash <Mary Oneill CHIEF POWER DISPATCHER - Last Filed: 02/25/23 15:17> Neurologic: Reports system reviewed and no additional complaints, except as documented, Reports dizziness, Reports headache(s), Denies numbness, Denies tingling and Denies weakness <Mary Oneill CHIEF POWER DISPATCHER - Last Filed: 02/25/23 15:17> PMFSH Past Medical History Attestation statement: The following information was validated with the patient. <Mary Oneill NP - Last Filed: 02/25/23 15:17> Source: old records reviewed and nursing notes reviewed <Mary Oneill NP - Last Filed: 02/25/23 15:17> Medical History: Medical History Bipolar depression <JJ Kramer - Last Filed: 02/27/23 11:10> Surgical History: Surgical History Hx of knee surgery <JJ Kramer - Last Filed: 02/27/23 11:10> Social History Social History: Social History Alcohol intake: never Patient Tobacco Use Status: Current everyday Tobacco user Substance Use Type: Marijuana Advance Directives: No Advance Directives Information Provided: Yes Current occupational status: employed Current occupation: [employer] <JJ Kramer - Last Filed: 02/27/23 11:10> Physical Exam ED Vital Signs: Vital Signs - 24 hr 02/25/23 14:27 Temperature 98.2 F Pulse Rate 55 Respiratory Rate 16 Blood Pressure 112/71 Pulse Oximetry 99 Oxygen Delivery Method Room Air BMI result Body Mass Index 30.5 <JJ Kramer - Last Filed: 02/27/23 11:10> Vital Signs - 24 hr 02/25/23 14:27 Temperature 98.2 F Pulse Rate 55 Respiratory Rate 16 Blood Pressure 112/71 Pulse Oximetry 99 Oxygen Delivery Method Room Air BMI result Body Mass Index 30.5 <Mary Oneill NP - Last Filed: 02/25/23 15:17> Const General: cooperative, healthy appearing, comfortable and no acute distress <Mary Oneill NP - Last Filed: 02/25/23 15:17> Orientation/consciousness: patient oriented x3 <Mary Oneill NP - Last Filed: 02/25/23 15:17> Limitations: no limitations <Mary Oneill NP - Last Filed: 02/25/23 15:17> HENMT Head: Yes normal to inspection <Mary Oneill CHIEF POWER DISPATCHER - Last Filed: 02/25/23 15:17> Ears: hearing grossly normal bilaterally and TM's normal bilaterally <Mary Oneill CHIEF POWER DISPATCHER - Last Filed: 02/25/23 15:17> General nose exam: Normal external nose present <Mary Oneill CHIEF POWER DISPATCHER - Last Filed: 02/25/23 15:17> Face and sinus: Yes normal facial exam <Mary Oneill, CHIEF POWER DISPATCHER - Last Filed: 02/25/23 15:17> Mouth: Normal oral and palatal mucosa present <Mary Oneill CHIEF POWER DISPATCHER - Last Filed: 02/25/23 15:17> Throat: Yes posterior oropharynx normal, Yes tonsils normal and Yes uvula midline <Mary Oneill CHIEF POWER DISPATCHER - Last Filed: 02/25/23 15:17> Eyes General: appearance normal, both eyes and all related structures <Mary Oneill CHIEF POWER DISPATCHER - Last Filed: 02/25/23 15:17> Pupils: Equal, round and reactive pupils present <Mary Oneill CHIEF POWER DISPATCHER - Last Filed: 02/25/23 15:17> Neck Neck: Yes normal visual inspection, Yes full ROM, Yes no lymphadenopathy and Yes no meningeal signs <Mary Oneill CHIEF POWER DISPATCHER - Last Filed: 02/25/23 15:17> Chest Chest palpation & inspection: normal inspection of the chest <Mary Oneill CHIEF POWER DISPATCHER - Last Filed: 02/25/23 15:17> Resp Effort & Inspection: normal respiratory effort <Mary Oneill CHIEF POWER DISPATCHER - Last Filed: 02/25/23 15:17> Auscultation: clear to auscultation bilaterally <Mary Oneill CHIEF POWER DISPATCHER - Last Filed: 02/25/23 15:17> Cardio Rate: regular rate <Mary Oneill CHIEF POWER DISPATCHER - Last Filed: 02/25/23 15:17> Rhythm: regular rhythm <Mary Oneill CHIEF POWER DISPATCHER - Last Filed: 02/25/23 15:17> Peripheral pulses: Peripheral pulses 2+ throughout <Mary Santanacci, CHIEF POWER DISPATCHER - Last Filed: 02/25/23 15:17> GI Inspection: Yes normal to inspection <Mary Santanajaquelinei, CHIEF POWER DISPATCHER - Last Filed: 02/25/23 15:17> Palpation (GI): Soft to palpation and nontender <Mary Santanacci, CHIEF POWER DISPATCHER - Last Filed: 02/25/23 15:17> General: Yes no CVA tenderness <Mary Pascucci, CHIEF POWER DISPATCHER - Last Filed: 02/25/23 15:17> Back/Spine/Pelvis Back: no CVA tenderness <Mary Pascucci, CHIEF POWER DISPATCHER - Last Filed: 02/25/23 15:17> Thoracic/Lumbar Spine: thoracic and lumbar spine normal to inspection <Mary Pascucci, CHIEF POWER DISPATCHER - Last Filed: 02/25/23 15:17> Skin General skin exam: no rashes or lesions noted <Mary Santanacci, CHIEF POWER DISPATCHER - Last Filed: 02/25/23 15:17> Neuro General: patient oriented x3, moves all extremities and no meningeal signs <Mary Santanacci, CHIEF POWER DISPATCHER - Last Filed: 02/25/23 15:17> Cranial nerves: Yes CN's II-XII intact bilaterally, Yes Equal, round and reactive pupils present, Yes Bilaterally intact EOM present, Yes Nystagmus not present, Yes Normal facial strength present and Yes Midline tongue present <Mary Santanacci, CHIEF POWER DISPATCHER - Last Filed: 02/25/23 15:17> Cognition (Neuro): normal cognition <Mary Pascucci, CHIEF POWER DISPATCHER - Last Filed: 02/25/23 15:17> Gait exam (Neuro): Normal gait present <Mary Pascucci, CHIEF POWER DISPATCHER - Last Filed: 02/25/23 15:17> Motor exam (neuro): 5/5 motor strength present throughout <Mary Pascucci, CHIEF POWER DISPATCHER - Last Filed: 02/25/23 15:17> Sensory Exam: Normal double simultaneous stimulation for sensation <Mary Pasradhikacci, CHIEF POWER DISPATCHER - Last Filed: 02/25/23 15:17> Extrem General: Yes normal to inspection, Yes no pedal edema and Yes no calf tenderness <Mary Pascucci, CHIEF POWER DISPATCHER - Last Filed: 02/25/23 15:17> Course Course Course Narrative: RME: 27 yold female presents to the ED sore throat, chills, and malaise. patient states no other complaints. Strep, Covid, and influuenza ordered <JJ Kramer - Last Filed: 02/27/23 11:10> Medical Decision Making Medical Decision Making [facility] Narrative: 27-year-old female healthy here with 3 days of cough, sore throat, chills, headache, feeling lightheaded. Patient had testing for COVID, flu and strep done in triage Exam is benign. Nontoxic appearing. No meningeal signs or lymphadenopathy. Normal neuro. Likely viral syndrome. Recommend supportive care at home. Reviewed worrisome signs and symptoms of when to return to the emergency room. Comfortable plan for discharge home. <Mary Oneill NP - Last Filed: 02/25/23 15:17> Differential Diagnosis Differential Diagnoses: The differential diagnosis associated with the presentation includes <Mary Oneill NP - Last Filed: 02/25/23 15:17> Viral syndrome Low concern for meningitis, strep pharyngitis, mononucleosis, epiglottitis, pneumonia. No red flag symptoms suggest malignancy <Mary Oneill NP - Last Filed: 02/25/23 15:17> Lab Data [facility] Lab Attestation statement: I reviewed the patient's lab results. <Mary Oneill NP - Last Filed: 02/25/23 15:17> Labs: Lab Results 02/25/23 02/25/23 02/25/23 Range/Units 14:34 14:34 14:34 COVID-19 (NICK) Negative (Negative) COVID-19 Clin Com See Note Influenza Type A (MARANDA) Negative (Negative) Influenza Type B (MARANDA) Negative (Negative) Influenza A & B Note See Note S. pyogenes GrpA MARANDA Negative (Negative) <JJ Kramer - Last Filed: 02/27/23 11:10> Lab Results 02/25/23 02/25/23 02/25/23 Range/Units 14:34 14:34 14:34 COVID-19 (NICK) Negative (Negative) COVID-19 Clin Com See Note Influenza Type A (MARANDA) Negative (Negative) Influenza Type B (MARANDA) Negative (Negative) Influenza A & B Note See Note S. pyogenes GrpA MARANDA Negative (Negative) <Mary Oneill NP - Last Filed: 02/25/23 15:17> Discharge Plan Discharge Clinical Impression: Viral infection <JJ Kramer - Last Filed: 02/27/23 11:10> Patient Disposition: Home, Self-Care <JJ Kramer - Last Filed: 02/27/23 11:10> Instructions: Viral Syndrome (ED) <JJ Kramer - Last Filed: 02/27/23 11:10> Additional Instructions: Testing for flu, COVID and strep are negative Increase fluids, rest Alternate Motrin/Tylenol for pain or fever Follow-up with primary care doctor in several days for persistent symptoms <JJ Kramer - Last Filed: 02/27/23 11:10> Prescriptions: No Action buprenorphine-naloxone [Suboxone] 2-0.5 mg film 2 mg sublingual DAILY <JJ Kramer - Last Filed: 02/27/23 11:10> Referrals: Physician,Unknown J [Primary Care Provider] - 1 week (as needed) <JJ Kramer - Last Filed: 02/27/23 11:10> Interventions: ED Discharge Assessment Last Done: 02/25/23 15:09 <JJ Kramer - Last Filed: 02/27/23 11:10> Discharge Date/Time: 02/25/23 15:10 <JJ Kramer - Last Filed: 02/27/23 11:10>
[2023-02-25 14:53] LABS: IDNOW Serial# 08D9AD1C; Strep A Nucleic Acid Negative (Negative)
[2023-02-25 14:54] LABS: COVID-19 Test Negative (Negative); IDNOW Serial# 9DB6401D; IDNOW Serial# BCCEAD1C; Influenza A Negative (Negative); Influenza B2 Negative (Negative)
== END 2023-02-25 15:10 | disposition home or self-care (01) ==
LOC: HO.ED 15:07
PROVIDERS: Physician Assistant; Emergency Provider Emergency Medicine
DX: J02.8 Acute pharyngitis due to other specified organisms (principal); G43.909 Migraine, unspecified, not intractable, without status migrainosus; R05.9 Cough, unspecified; Z20.822 Contact with and (suspected) exposure to COVID-19; Z20.828 Contact with and (suspected) exposure to other viral communicable diseases
CPT/HCPCS: 87502; 87635; 87651; 99282

== ENCOUNTER 2023-03-08 19:16 | Outpatient (REF) | payer MEDICAID, SELFPAY ==
--- NOTE | ~2023-03-08 | MR_ITS ---
EXAMINATION: MR KNEE WITHOUT CONTRAST, RIGHT CLINICAL INFORMATION: Right knee pain and numbness following a fall. Limited range of motion. Evaluate for internal derangement. COMPARISON: Right knee radiographs dated 01/20/2023. TECHNIQUE: MRI of the knee without contrast was performed using routine sequences on a high-field scanner. FINDINGS: MENISCI: Medial Meniscus: Intact. Lateral Meniscus: Intact. LIGAMENTS: Cruciate: Complete versus near-complete tear of the anterior cruciate ligament with thin, irregular ligament fibers possibly remaining intact. Mild adjacent soft tissue edema. Intact posterior cruciate ligament. Collateral: Thickening of the medial collateral ligament with proximal anterior and articular surface signal heterogeneity as well as adjacent soft tissue edema, consistent with acute grade 2 sprain/partial tear. Intact fibular collateral ligament. EXTENSOR MECHANISM: Intact. ARTICULAR CARTILAGE/BONE: Patellofemoral Compartment: Partial-thickness articular cartilage fissuring at the patellar median ridge and medial patellar facet. Central trochlear signal heterogeneity with areas of near full-thickness fissuring. Tiny marginal osteophytes. Medial Compartment: Intact articular cartilage. Mild marrow edema at the medial aspect of the medial femoral condyle as well as minimal cortical depression and marrow edema at the posterior aspect of the medial tibial plateau, consistent with impaction injuries. Lateral Compartment: Intact articular cartilage. Cortical depression with underlying marrow edema at the posterior aspect of the lateral tibial plateau measuring up to 1.5 cm in ML dimension, consistent with an impaction injury. JOINT FLUID AND BURSAE: [id number] joint effusion with lobulated synovitis versus debris within the superior joint recess. Small Rebolledo's cyst with a probable loose body measuring up to 0.8 cm in greatest dimension. MR/MR knee RT wo con IMPRESSION: 1. Complete versus near-complete tear of the anterior cruciate ligament with thin, irregular ligament fibers possibly remaining intact. 2. Acute grade 2 sprain/partial tear of the medial collateral ligament. 3. Impaction injuries at the posterior aspect of the medial and lateral tibial plateau as well as at the medial aspect of the medial femoral condyle. 4. Mild patellofemoral osteoarthritis. [id number] joint effusion with lobulated synovitis versus debris within the superior joint recess. Small Rebolledo's cyst with a probable loose body measuring up to 0.8 cm.
== END 2023-03-08 19:17 | disposition home or self-care (01) ==
LOC: HO.MRI 19:16
PROVIDERS: PCP Registered Nurse; Visit Provider Physician Assistant
DX: M23.91 Unspecified internal derangement of right knee (principal); M22.41 Chondromalacia patellae, right knee
CPT/HCPCS: 73721

== ENCOUNTER → 2023-03-29 13:54 | Outpatient (BNVA) | payer MEDICAID, SELFPAY | PROVIDERS: PCP Registered Nurse; Visit Provider Orthopaedic Surgery | DX: S83.511A Sprain of anterior cruciate ligament of right knee, initial encounter (principal) | CPT/HCPCS: 99212 ==

== ENCOUNTER 2023-03-29 15:00 | Outpatient (RCR) | payer MEDICAID, SELFPAY ==
--- NOTE | 2023-03-09 16:14 | MHC.PT.EP ---
[facility] [place] Office [place] Office [place] Office [address] [phone] F: [phone] F: [phone] F: [phone] F: [phone] Physical Therapy Plan of Care Date of Evaluation: Date of Surgery: NA Diagnosis: R KNEE INTERNAL DERANGEMENT Assessment: Pt IS 27 YO F S/P FALL ON December WITH R KNEE INJURY. TO ER, TO ORTHO, MRI YESTERDAY (RESULTS PENDING). PRESENTS TO PT WITH LIMITED R KNEE ROM AND LIMITED R LE STRENGTH WITH ANTALGIC GT AND PAIN. 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 SHOULD BENEFIT FROM PT TO ADDRESS THESE ISSUES Frequency and Duration: The patient will be seen 2X/WK X 4 WKS Short Term Goals: 1. INCREASED AWARENESS LE CARE 2. R KNEE ROM 0-130 3. IMPROVED GT PATTERN (INCREASED KNEE EXT) Rn Case Manager Hospice Goals: 1. I HEP WITH DC EX PLAN 2. DECREASED R KNEE PAIN AT LEAST 50% WITH ADLS 3. RTW 4. IMPROVED LEFI ( SOC) Treatment Plan: Modalities to reduce pain, spasms and effusion. Manual therapy to restore motion and function. Therapeutic exercise to improve strength and flexibility. Neuromuscular re-education for posture and balance. Therapeutic activities to return to functional activities of daily living. Electronically signed by: SOHEILA STANTON PT Please sign and return to therapist. Thank you for your referral.
--- NOTE | 2023-04-13 15:53 | MHC.PT.DC ---
[facility] [place] Office [place] Office [place] Office [address] Kristie [address] [phone] F: [phone] F: [phone] F: [phone] F: [phone] Physical Therapy Discharge Report Diagnosis: R KNEE INTERNAL DERANGEMENT Date of Surgery: NA Date of Evaluation: 03/09/23 Date of Discharge: 04/13/23 Treatments to Date: 5 Cancellations to Date: No Shows to Date: Discharge Status: Visit Non-compliance Discharge Summary: Pt SEEN FOR INIT EVAL AND 4 VISITS. SAW ORTHO AND WAS TO CONTINUE WITH PT UNTIL ACL SURGERY (SCHEDULED FOR MAY). Pt THEN NO SHOWED LAST 3 SCHEDULED APPTS. PER LAST NO SHOW NOTE: 'Pt NO SHOWED TODAY, THIS PT CALLED AND LEFT MSG ON HER CELL TO LET US KNOW PLANS/SURG DATE. ED THAT PER LAST ORTHO NOTE, WAS TO CONT WITH PT UTNIL ACL SURGERY. Electronically signed by: SOHEILA STANTON PT Please sign and return to therapist. Thank you for your referral.
== END 2023-04-13 15:57 | disposition home or self-care (01) ==
LOC: HO.PT 15:00
PROVIDERS: PCP Registered Nurse; Visit Provider Physician Assistant
DX: M23.91 Unspecified internal derangement of right knee (principal); M22.41 Chondromalacia patellae, right knee
CPT/HCPCS: 97110; 97161; 97535

== ENCOUNTER 2023-06-04 13:44 | Outpatient (AMB) | payer MEDICAID, SELFPAY ==
--- NOTE | 2023-06-04 13:50 | MHC.OFFVIS ---
Intake Vital Signs 06/04/23 13:54 Height 5 ft 1 in Weight 161 lb BMI 30.4 Intake Visit Reasons: Pre-Op RT ACL Recon. 06/20/23NE Intake Note: Shantel a 27 year old female who presents today for a preoperative right ACL reconstruction on 06/20/23 NE. Pain management reviewed and signed. Patient is requesting an alternative pain medication that is not a narcotic. Allergies No Known Allergies Allergy (Verified 06/04/23 13:52) HPI HPI Comments History of Present Illness Details Ms Bauman presents to the office today for preop visit. She is scheduled for right knee acl reconstruction with Dr. Marin. She continues to have ongoing pain and difficulty with ambulation in the right knee, which is affecting her quality of life; therefore, she has elected to move forward with surgery. [facility] Medical History Bipolar depression Surgical History Hx of knee surgery Social History Alcohol intake: never Patient Tobacco Use Status: Current everyday Tobacco user Substance Use Type: Marijuana Current occupational status: employed Current occupation: [employer] Review of Systems Const All systems reviewed & are unremarkable except as noted in HPI and below Physical Exam Vital Signs: BMI result Body Mass Index 30.4 Const General: cooperative and no acute distress Orientation/consciousness: patient oriented x3 HEENT Head: Yes normal to inspection, Yes normocephalic and Yes atraumatic Eyes General: appearance normal, both eyes and all related structures Neck Neck: Yes normal visual inspection and Yes no lymphadenopathy Resp Effort & Inspection: normal respiratory effort and able to speak in complete sentences Cardio Rate: regular rate Peripheral pulses: Peripheral pulses 2+ throughout GI Inspection: Yes normal to inspection Palpation (GI): Soft to palpation Skin General skin exam: no rashes or lesions noted Lesions: no lesions Rashes: no rashes Neuro General: patient oriented x3 Extrem Other: Right knee skin intact, no erythema or joint effusion. Medial retropatellar tenderness. ROM is 0 to 95 with crepitus. Negative Jonna?s. No ligamentous laxity. NVI. Psych Appearance: grossly normal Mental Status: mental status grossly normal Assessment & Plan Assessment & Plan (1) Right ACL tear: Code(s): S83.511A - Sprain of anterior cruciate ligament of right knee, initial encounter Plan: I discussed the extent of the injury to the patient and options available which include surgical intervention. I explained the procedure in detail along with the length of recovery and rehab course. We reviewed home exercises which he should begin POD 1 ( heel slides, SLR, passive extension). I explained to him the use of the brace. He should ambulate with the brace locked in extension, sleep with the brace on , and remove for exercises or resting. I explained the risk, benefits and alternatives. Risk including, but not limited to infection, blood clots, bleeding, ongoing pain and stiffness. I answered all their questions and with their understanding they have consented to move forward with Right knee acl reconstruction with allograft with Dr Marin. The patient was fit for an off the shelf ACl brace Patient Instructions: Scribed for Cong Kilgore PA-C, by Balwinder Fisher medical services assistant, on 06/04/2023 at 2:00 PM BLAINE. Cong Farrell PA-C, have personally reviewed and agree with the information entered by the scribe. Coding Level of Care Code Est Pt Level 3 (02757) Diagnoses Right ACL tear S83.511A
[2023-06-04 13:54] VITALS: BMI 30.4
== END 2023-06-04 14:34 | disposition home or self-care (01) ==
PROVIDERS: PCP Registered Nurse; Visit Provider Physician Assistant
DX: S83.511A Sprain of anterior cruciate ligament of right knee, initial encounter (principal)
CPT/HCPCS: 99213

== ENCOUNTER → 2023-06-04 13:44 | Outpatient (BNVA) | payer MEDICAID, SELFPAY | PROVIDERS: PCP Registered Nurse; Visit Provider Physician Assistant | DX: S83.511A Sprain of anterior cruciate ligament of right knee, initial encounter (principal) | CPT/HCPCS: 99213 ==

== ENCOUNTER 2023-06-20 05:58 | Day surgery (SDC) | payer MEDICAID, SELFPAY ==
[2023-06-18 10:45] VITALS: BMI 30.4
[2023-06-20 06:22] LABS: Urine Pregnancy NEGATIVE (NEGATIVE)
[2023-06-20 06:23] LABS: UPreg QC Valid YES
[2023-06-20 06:26] VITALS: PULSE 53; RESP 16; TEMP 35.9; O2SAT 98
[2023-06-20] MEDS: Lactated Ringers 1,000 ML 100 ML IVCONT (06:37)
--- NOTE | 2023-06-20 08:02 | HO.ANESPROP2 ---
HPI - Anesthesia Eval Consult details Narrative: for right ACL repair PMFSH Active Problems Active Problems: All Active Problems (Updated 03/29/23 @ 14:31 by Joseluis Collins) Right ACL tear (Acute) Chondromalacia patellae, right knee (Acute) Internal derangement of right knee (Acute) Abrasion of left leg (Acute) Past Medical History Medical History Bipolar depression Family History Family history of problems with anesthesia: No Surgical History Surgical History Hx of knee surgery History of Problems with Anesthesia: No Social History Social History Alcohol intake: never Patient Tobacco Use Status: Current everyday Tobacco user Cigarettes Per Day: 8 Use of substances other than those prescribed or required for medical reasons: Yes Substance Use Type: Marijuana Are you DNR?: No Advance Directives: No Advance Directives Information Provided: Yes Current occupational status: employed Current occupation: [employer] Allergies Allergy/AdvReac Type Severity Reaction Status Date / Time No Known Allergies Allergy Verified 06/04/23 13:52 Active Medications: Current Medications Lactated Ringer's (Lr) 1,000 mls @ 100 mls/hr IVCONT .Q10H LAURA Last Admin: 06/20/23 06:37 Dose: 100 mls/hr Home Medications Medication Instructions Recorded Confirmed Last Taken Type buprenorphine 2 mg-naloxone 0.5 mg 2 mg sublingual DAILY 02/14/23 06/20/23 06/19/23 History sublingual film (Suboxone) Exam Exam Date and Time: June 20, 2023 0802 Height,Weight and Vital Signs: Height 5 ft 1 in Weight 73.028 kg Last Vital Signs Temp 96.7 F L 06/20/23 06:26 Pulse 53 06/20/23 06:26 Resp 16 06/20/23 06:26 Pulse Ox 98 06/20/23 06:26 O2 Del Method Room Air 06/20/23 06:26 Pertinent Lab Results Pertinent Lab Results: Laboratory Tests 06/20/23 06:11 Urine Test NEGATIVE Airway Mallampati Class: II TM Dist: >3cm Neck ROM: Full Heart: rrr Lungs: cta Assessment and Plan Assessment Anesthesia Assessment: Anesthesia Plan Discussed and Chart Reviewed Final Anesthetic Review Family History of Problems with Anesthesia: No History of Problems with Anesthesia: No NPO: Yes ASA Class: II Final Preanesthetic Review: No Changes in Pt Med Stat, Meds/Allgs Chart Reviewed, Consent Obtained/Reviewed and Anes Risks/Benef Reviewed Patient Risk: Low Procedure Risk: Intermediate Anesthetic Plan Anesthetic Plan: GA and Regional Block (fem /sciatic ) Disposition: Standard PACU
--- NOTE | 2023-06-20 09:09 | MHC.SHP ---
Pre-Procedural Eval Section A Date of Service: 06/20/23 The patient is an INPATIENT: No Changes since office visit: No Cold of Flu in the past 2 weeks, No New Medical Problems, No Changes in Medication and No Patient answered all questions The History & Physical has been completed within 30 days and I have reviewed it.: Yes Section B Chief Complaint: Sprain of anterior cruciate ligament of right knee Allergies: Allergies Allergy/AdvReac Type Severity Reaction Status Date / Time No Known Allergies Allergy Verified 06/04/23 13:52 Plan I have reviewed the history and physical and performed a pertinent physical examination on my patient. No changes have occurred unless specified. Time Spent With Patient Time: Total time managing care of this patient today ____ minutes.
--- NOTE | 2023-06-20 09:09 | PM.OP ---
Brief Operative Note Date of Service: 06/20/23 Pre-op diagnosis: Right ACL tear Post-op diagnosis: same Procedure: Right ACL reconstuction with allograft Implants: Sorenson adn [employer] ACL button with 10x25 tibial interference screw RTI- posterior tibial allograft Surgeon: Adria Marin MD Anesthesia: GETA and regional Was an Associate Automation Engineer used for this Procedure?: Yes Associate Automation Engineer: Sara Meadows Estimated blood loss (mL): 25 Tourniquet time (min): 45 IV fluids (mL): 1,000 Pathology: none sent Condition: stable Disposition: PACU
[2023-06-20 09:17] VITALS: BP 132/71; PULSE 81; RESP 18; TEMP 36.1; O2SAT 99
[2023-06-20 09:22] VITALS: BP 121/66; PULSE 62; RESP 18; O2SAT 98
[2023-06-20 09:27] VITALS: BP 123/66; PULSE 56; RESP 16; O2SAT 98
[2023-06-20 09:32] VITALS: BP 110/67; PULSE 51; RESP 16; O2SAT 98
[2023-06-20 09:47] VITALS: BP 110/65; PULSE 52; RESP 16; TEMP 36.3; O2SAT 98
--- NOTE | 2023-06-20 10:54 | P.OP_ITS ---
Operative Note Operative Note Date of Service: 06/20/23 Narrative: Date of Service: 06/20/23 Pre-op diagnosis: Right ACL tear Post-op diagnosis: same Procedure: Right ACL reconstuction with allograft Implants: Sorenson adn Nephew ACL button with 10x25 tibial interference screw RTI- posterior tibial allograft Surgeon: Adria Marin MD Anesthesia: GETA and regional Was an Support Services Specialist used for this Procedure?: Yes Support Services Specialist: Sara Meadows Estimated blood loss (mL): 25 Tourniquet time (min): 45 IV fluids (mL): 1,000 Pathology: none sent Condition: stable Disposition: PACU Procedure in detail: Patient was brought to the operating room placed supine on the arthroscopic table and prepped and draped in standard sterile fashion. A time-out was called to identify proper site proper procedure proper surgeon and IV antibiotics per weight were administered. Under anesthesia she had a + pivot shift. I began by exsanguinating the limb and insufflating tourniquet to 300 mm Hg. Then made a standard anterolateral stab incision. The knee was insufflated with water and 30 degree arthroscope was placed. There was grade 1 fibrillations of the patella but overall suprapatellar pouch and the gutters were clean. I descended into the medial compartment where I made my far medial portal under direct visualization. There was an intact medial meniscus. The root was intact and there were no cartilage injuries. I examined the notch where there was a + empty wall sign and an intact PCL.I examined the lateral compartment where there was in intact meniscus but the tibial plateua had been damaged with a G 2 injury to the cartilage. Loose fragments were debrided. I returned to the notch where I debrided the stump and acl footprint and performed a limited notchplasty. I then, through a far AM portal and a 7mm behind the back guide, drilled a k-wire through the LFC with the knee in hyper-flexion. I measured the tunnel as a 30 and then after sizing the allograft on the back table drilled a 23-4 mm tunnel with an 10 mm reamer. The final 6-8mm was drilled with a 4.5 reamer. I then pul led a suture through the femoral tunnel and turned my attention to the tibia. I did examine the femoral tunnel and was satisfied with the posterior wall and its location low and medial at the anatomic footprint. I placed my tibial drill guide in 55 deg and, through a anteromedial inc just lateral to the tibial tubercle placed a k-wire into the notch exiting just medial to the anterior horn insertion of the lateral meniscus. I then over-reamed with an 10 reamer. I cleaned the tunnels up with a shaver. On the back table I whip-stitched the allograft to fit through an 10 aperture and attached the femoral button to the looped end. I placed the graft on 15lbs of tension for 10 minutes. I then passed the allograft through the tibial tunnel and femoral tunnel and flipped the button. I cycled the knee about 10-15 cycles and then placed a tibial interference screw with the knee in hyper-extension while holding the graft taught. Once I was satisfied that the interference screw was buried I examined the ACL and the medial meniscus repair. The repair was stable and the ACL was not impinging and there was a negative pivot shift. I then removed all instrumentation and closed the incisions with nylon. Patient was then placed in sterile dressings and a hinged knee brace. She was then extubated brought recovery room stable condition. There were no known complications.
== END 2023-06-20 10:34 | disposition home or self-care (01) ==
PROVIDERS: Nurse Practitioner; PCP Registered Nurse; Visit Provider Orthopaedic Surgery
PROC: (CPT 27428; principal; 2023-06-20 07:30)
DX: S83.511A Sprain of anterior cruciate ligament of right knee, initial encounter (principal); M22.41 Chondromalacia patellae, right knee; M23.91 Unspecified internal derangement of right knee; R26.2 Difficulty in walking, not elsewhere classified; F31.9 Bipolar disorder, unspecified; Z79.891 Long term (current) use of opiate analgesic; F17.210 Nicotine dependence, cigarettes, uncomplicated; F12.90 Cannabis use, unspecified, uncomplicated; Z98.890 Other specified postprocedural states; X58.XXXA Exposure to other specified factors, initial encounter; Y93.9 Activity, unspecified; Y92.9 Unspecified place or not applicable; Y99.8 Other external cause status
CPT/HCPCS: 29888; 81025; C1713; C1769; J0171; J0690; J1100; J1170; J1885; J2250; J2405

== ENCOUNTER → 2023-06-20 05:58 | Outpatient (BNV) | payer MEDICAID, SELFPAY | PROVIDERS: PCP Registered Nurse; Visit Provider Orthopaedic Surgery | DX: S83.511A Sprain of anterior cruciate ligament of right knee, initial encounter (principal) | CPT/HCPCS: 29888 ==

== ENCOUNTER 2023-06-25 10:45 | Outpatient (AMB) | payer MEDICAID, SELFPAY ==
--- NOTE | 2023-06-25 10:57 | MHC.OFFVIS ---
Intake Intake Visit Reasons: PO RT ACL Rec. 06/20/23NE Intake Note: Shantel a 27 year old female who presents today for a post operative right ACL reconstruction on 06/20/23 NE. Patient reports her pain level is 8 out of 10. States appointment to start PT is tomorrow. Allergies No Known Allergies Allergy (Verified 06/25/23 10:58) HPI PO RT ACL Rec. 06/20/23NE HPI Details 27-year-old female who returns to the office today for post-op right ACL reconstruction, 06/20/[address] Marin. She continues to have pain in her knee and rates her pain as 8 on the scale of 0-10. She is about to start with physical therapy tomorrow. She is doing well overall and has no other concerns today. [facility] Medical History Bipolar depression Surgical History Hx of knee surgery Social History Alcohol intake: never Patient Tobacco Use Status: Current everyday Tobacco user Cigarettes Per Day: 8 Substance Use Type: Marijuana Current occupational status: employed Current occupation: [employer] Review of Systems Const All systems reviewed & are unremarkable except as noted in HPI and below Physical Exam Extrem Other: Right knee: Incision clean, dry and intact. She has trace swelling throughout the knee. ROM is -15 to 75 degrees. Calf supple, nontender. NVI. Assessment & Plan Assessment & Plan (1) Right ACL tear: Code(s): S83.511A - Sprain of anterior cruciate ligament of right knee, initial encounter Plan Dr. Marin was available to see the patient with me today. She begins physical therapy on June 26. I did demonstrate some exercises with her in the office today which include passive extension, flexion and isometric quad exercises. She will continue to wear the brace locked in extension with ambulation. She can weight bearing as tolerated with the brace while walking. She can remove the brace for hygiene and while working on exercises in physical therapy and at home. I did send her a prescription for Tylenol and Mcknight to the pharmacy. She will continue to remain out of work and she will see us back in 4 weeks for a follow-up. Medications: New ibuprofen 800 mg PO Q8H PRN 90 tabs 3RF pain 30 days S52.209D - Unspecified fracture of shaft of unspecified ulna, subsequent encounter for closed fracture with routine healing acetaminophen 650 mg (2 x 325 mg) PO Q4-6H PRN 240 tabs 3RF fever or pain 7 days Patient Instructions: Scribed for Cong Kilgore PA-C, by Balwinder Fisher medical records receptionist, on 06/25/2023 at 10:45 AM EST. I, Cong Kilgore PA-C, have personally reviewed and agree with the information entered by the scribe. Coding Level of Care Code Global (52399) Diagnoses Right ACL tear S83.511A
== END 2023-06-25 11:31 | disposition home or self-care (01) ==
PROVIDERS: PCP Registered Nurse; Visit Provider Physician Assistant
DX: S83.511A Sprain of anterior cruciate ligament of right knee, initial encounter (principal)
CPT/HCPCS: 99024

== ENCOUNTER → 2023-06-25 10:45 | Outpatient (BNVA) | payer MEDICAID, SELFPAY | PROVIDERS: PCP Registered Nurse; Visit Provider Physician Assistant ==

== ENCOUNTER 2023-07-06 14:00 | Outpatient (RCR) | payer MEDICAID, SELFPAY ==
--- NOTE | 2023-08-20 15:17 | MHC.PT.DC ---
[facility] [place] Office [place] Office [place] Office [address] Kristie Dick 140 [facility] [phone] F: [phone] F: [phone] F: [phone] F: [phone] Physical Therapy Discharge Report Diagnosis: S/P ACL RECONSTRUCTION WITH ALLOGRAPH Date of Surgery: Date of Evaluation: 06/26/23 Date of Discharge: 07/21/23 Treatments to Date: 2 Cancellations to Date: 1 No Shows to Date: 3 Discharge Status: Visit Non-compliance Discharge Summary: Pt able to tonia protocol progression of exercises today, use of NMES for quad strength. Pt without pain, challenged by SL hip abd but able to maintain knee ext throughout. Electronically signed by: Wendy Maza PT DPT Please sign and return to therapist. Thank you for your referral.
== END 2023-08-20 15:17 | disposition home or self-care (01) ==
LOC: HO.PT 14:00
PROVIDERS: PCP Registered Nurse; Visit Provider Orthopaedic Surgery
DX: S83.511D Sprain of anterior cruciate ligament of right knee, subsequent encounter (principal)
CPT/HCPCS: 97110; 97112; 97161; 97530

== ENCOUNTER 2023-07-25 10:33 | Outpatient (REF) | payer MEDICAID, SELFPAY ==
[2023-07-25 11:23] LABS: MANUAL DIFF FLAG NO
[2023-07-25 11:37] LABS: Basophils Absolute Auto 0.1 X10*3/uL (0.0-0.2); Basophils Percent Auto 0.8 % (0-2); Eosinophils Absolute Auto 0.4 X10*3/uL (0.0-0.4); Eosinophils Percent Auto 4.5 % (0-4); Hematocrit 38.9 % (37.0-47.0); Hemoglobin 13.1 g/dl (12.0-16.0); Imm Gran Abs Auto 0.02 X10*3/uL (0.00-0.03); Imm Gran Pct Auto 0.2 % (0.0-0.4); Lymphocytes Absolute Auto 2.6 X10*3/uL (1.2-4.9); Lymphocytes Percent Auto 30.2 % (20-40); Mean Corpuscular HGB Conc 33.7 g/dl (31.0-35.0); Mean Corpuscular Hemoglobin 31.9 pg (27.0-33.0); Mean Corpuscular Volume 94.6 fL (80.0-98.0); Mean Platelet Volume 10.9 fL (9.4-12.3); Monocytes Absolute Auto 0.6 X10*3/uL (0.1-1.2); Monocytes Percent Auto 6.6 % (2-11); Neutrophils Percent Auto 57.7 % (45-73); Platelet Count 272 X10*3/uL (160-400); Red Blood Count 4.11 X10*6/uL (4.20-5.50); Red Cell Distribution Width 11.6 % (11.0-16.0); White Blood Count 8.6 X10*3/uL (4.8-10.8)
[2023-07-25 13:20] LABS: Iron 110 mcg/dL (30-160); Percent Iron Saturation 46 % (15-50); Total Iron Binding Capacity 241 mcg/dL (228-428); Unsaturated Iron Binding 131 ug/dL
[2023-07-25 13:27] LABS: Ferritin 125 ng/mL (10-122); TSH reflex Free T4 0.64 uIU/mL (0.32-4.0)
== END 2023-07-25 10:34 | disposition home or self-care (01) ==
LOC: HO.HHCL 10:33
PROVIDERS: Visit Provider Registered Nurse
DX: R68.89 Other general symptoms and signs (principal)
CPT/HCPCS: 36415; 82728; 83540; 84443; 85025

== ENCOUNTER 2023-07-27 12:55 | Outpatient (AMB) | payer MEDICAID, SELFPAY ==
--- NOTE | 2023-07-27 13:13 | A.OFFVIS_ITS ---
Intake Intake Visit Reasons: PO-RT ACL Rec. 06/20/23NE Intake Note: Shantel a 27 year old female who presents today for a post operative right ACL rec., DOS 06/20/23 NE. Patient reprts pain level is 3 out of 10. States buckle on knee brace has been irritating her incision. Allergies No Known Allergies Allergy (Verified 07/27/23 13:14) HPI PO-RT ACL Rec. 06/20/23NE HPI Details 27-year-old female who returns to the [facility] today for post-op right ACL reconstruction 06/20/[address] Marin. She continues to have pain in her right knee and rates the pain as 3 on the scale of 0-10. She also reports the buckle on her knee brace has been irritating the incision. She has discontinued working with physical therapy but she does perform exercises at home. She is doing well otherwise and has no concerns today. [facility] Medical History Bipolar depression Surgical History Hx of knee surgery Social History Alcohol intake: never Patient Tobacco Use Status: Current everyday Tobacco user Cigarettes Per Day: 8 Substance Use Type: Marijuana Current occupational status: employed Current occupation: [employer] Review of Systems Const All systems reviewed & are unremarkable except as noted in HPI and below Physical Exam Extrem Other: Right knee: Portal sites around the patella are well healed. The tibial incision does have a retained suture present with some surrounding erythema. No drainage. ROM is 10-90 degrees. Calf supple, nontender. NVI. Assessment & Plan Assessment & Plan (1) Status post reconstruction of anterior cruciate ligament: Code(s): Z98.890 - Other specified postprocedural states Plan Retained sutures was removed and the area was cleaned. I will place her on antibiotics for the next 10 days just for precaution as this is wound breakdown and she does have hardware in place. I did stress the importance of working with physical therapy to improve her ROM but also work on quad strength to help prevent further injury. She is going to perform wet to dry dressing changes once a day which I did demonstrate to her in the office. We did also reviewed exercises she can work on at home for ROM and quad strength until she can be sent for physical therapy. She will see me back in 1 week for a wound check. Medications: New doxycycline hyclate 100 mg PO BID 20 caps 0RF 10 days Patient Instructions: Scribed for Cong Kilgore PA-C, by Balwinder Fisher vice president medical affairs, on 07/27/2023 at 1:15 PM EST. I, Cong Kilgore PA-C, have personally reviewed and agree with the information entered by the scribe. Coding Level of Care Code Global (52938) Diagnoses Status post reconstruction of anterior cruciate ligament Z98.890
== END 2023-07-27 14:08 | disposition home or self-care (01) ==
PROVIDERS: PCP Registered Nurse; Visit Provider Physician Assistant
DX: Z98.890 Other specified postprocedural states (principal)
CPT/HCPCS: 99024

== ENCOUNTER → 2023-07-27 12:55 | Outpatient (BNVA) | payer MEDICAID, SELFPAY | PROVIDERS: PCP Registered Nurse; Visit Provider Physician Assistant ==

== ENCOUNTER 2023-08-02 11:47 | Outpatient (AMB) | payer MEDICAID, SELFPAY ==
--- NOTE | 2023-08-02 12:26 | MHC.OFFVIS ---
Intake Intake Visit Reasons: PO- Rt knee acl wound check, 06/20/23NE Intake Note: Shantel a 27 year old female who prestents today for a post operative right ACL reconstruction with allograft, DOS 06/27/23 NE. Patient reports no concerns today. Allergies No Known Allergies Allergy (Verified 08/02/23 12:27) HPI PO- Rt knee acl wound check, 06/20/23NE HPI Details 27-year-old female who returns to the office today for post-op right knee ACL reconstruction with allograft, 06/27/[address] Marin. She states she has no pain and is doing well overall. She has no concerns today. [facility] Medical History Bipolar depression Surgical History Hx of knee surgery Social History Alcohol intake: never Patient Tobacco Use Status: Current everyday Tobacco user Cigarettes Per Day: 8 Substance Use Type: Marijuana Current occupational status: employed Current occupation: [employer] Review of Systems Const All systems reviewed & are unremarkable except as noted in HPI and below Physical Exam Extrem Other: Right knee: Portal sites around the patella are well healed. The tibial incision has formed a scab, there is no erythema. No drainage. ROM is 0-95 degrees. Calf supple, nontender. NVI. Assessment & Plan Assessment & Plan (1) Status post reconstruction of anterior cruciate ligament: Code(s): Z98.890 - Other specified postprocedural states Plan She is going to apply dry dressing only to the incision with an quyen wrap to protect against rubbing against the brace. She will continue to work on her exercises to maintain her motion and work on quad strength. I did reiterate the importance of working with formal physical therapy. I do understand she has difficulty with transportation but the hospital does offer transportation services. She will see in 1 week for a wound check. Patient Instructions: Scribed for Cong Kilgore PA-C, by Balwinder Fisher medical research associate, on 08/02/2023 at 12:30 PM EST. ICong PA-C, have personally reviewed and agree with the information entered by the scribe. Coding Level of Care Code Global (74333) Diagnoses Status post reconstruction of anterior cruciate ligament Z98.890
== END 2023-08-02 12:53 | disposition home or self-care (01) ==
PROVIDERS: PCP Registered Nurse; Visit Provider Physician Assistant
DX: Z98.890 Other specified postprocedural states (principal)
CPT/HCPCS: 99024

== ENCOUNTER → 2023-08-02 11:47 | Outpatient (BNVA) | payer MEDICAID, SELFPAY | PROVIDERS: PCP Registered Nurse; Visit Provider Physician Assistant ==

== ENCOUNTER 2023-08-09 09:55 | Outpatient (AMB) | payer MEDICAID, SELFPAY ==
--- NOTE | 2023-08-09 09:59 | A.OFFVIS_ITS ---
Intake Vital Signs 08/09/23 10:01 Height 5 ft 1 in Weight 170 lb BMI 32.1 Intake Visit Reasons: PO-Rt knee acl wound check, 06/20/23NE Intake Note: Shantel a 27 year old female presents today for post operative wound check of right knee ACL, DOS 06/20/23 NE. Patient reports during the week there was a cyst that had appeared near incision area that had popped and she squeezed out the fluid. States wound looks better today. Allergies No Known Allergies Allergy (Verified 08/09/23 10:04) HPI PO-Rt knee acl wound check, 06/20/23NE HPI Details 27-year-old female who returns to the [facility] today for post-op right knee ACL reconstruction, 06/20/[address] Marin. She states she noticed a cyst near the incision area which popped and she squeezed out the fluid. Her wound is doing better today. She is doing well otherwise and has no concerns today. [facility] Medical History Bipolar depression Surgical History Hx of knee surgery Social History Alcohol intake: never Patient Tobacco Use Status: Current everyday Tobacco user Cigarettes Per Day: 8 Substance Use Type: Marijuana Current occupational status: employed Current occupation: [employer] Review of Systems Const All systems reviewed & are unremarkable except as noted in HPI and below Physical Exam Vital Signs: BMI result Body Mass Index 32.1 Extrem Other: Right knee: Portal sites around the patella are well healed. The tibial incision has formed a scab, there is no erythema. No drainage. ROM is 0-95 degrees. Calf supple, nontender. NVI. Assessment & Plan Assessment & Plan (1) Status post reconstruction of anterior cruciate ligament: Code(s): Z98.890 - Other specified postprocedural states Plan The incision is healing well. I encouraged her to keep it clean and dry and avoid any type of irritation or rubbing against that site. She will continue to work on home exercises and I did stress the importance of getting in to physical therapy. She does have their contact information. I did update the referral and I did also explain to her that the hospital offers shuttle transportation along with lift rides that she needs to be proactive about. I would like to see her back in 4 weeks for routine follow-up, sooner if needed. Orders: Orders PT Evaluation and Treatment Today S83.511A - Sprain of anterior cruciate ligament of right knee, initial encounter, Z98.890 - Other specified postprocedural states Patient Instructions: Scribed for Cong Kilgore PA-C, by Balwinder Fisher emergency medical technician, on 08/09/2023 at 10:00 AM EST. I, Cong Kilgore PA-C, have personally reviewed and agree with the information entered by the scribe. Coding Level of Care Code Global (96528) Diagnoses Status post reconstruction of anterior cruciate ligament Z98.890
[2023-08-09 10:01] VITALS: BMI 32.1
== END 2023-08-09 10:37 | disposition home or self-care (01) ==
PROVIDERS: PCP Registered Nurse; Visit Provider Physician Assistant
DX: Z98.890 Other specified postprocedural states (principal)
CPT/HCPCS: 99024

== ENCOUNTER → 2023-08-09 09:55 | Outpatient (BNVA) | payer MEDICAID, SELFPAY | PROVIDERS: PCP Registered Nurse; Visit Provider Physician Assistant ==

== ENCOUNTER 2023-09-13 14:00 | Outpatient (RCR) | payer MEDICAID, SELFPAY ==
--- NOTE | 2023-09-03 14:52 | MHC.PT.EP ---
[facility] [place] Office [place] Office [place] Office [address] Dinah Dick [address] [phone] F: [phone] F: [phone] F: [phone] F: [phone] Physical Therapy Plan of Care Date of Evaluation: 09/03/23 Date of Surgery: 06/20/23 Diagnosis: s/p R ACL repair Assessment: Shantel is a 27 year old female who is referred to PT for s/p R ACL repair . She had a allograft and is 10.5 weeks post op (DOS- 06/20/23). She came to PT with a knee brace. She did not perform PT after her surgery due to transportation issues. On PT examination she presented with 0/10 pain, mild TTP over infero-medial aspect of patella, difficulty squatting, bending and stairs, decreased knee ROM, decreased R hip and knee muscle strength, altered posture, balance and gait. She lives with her daughter and is independent with all ADLS but takes rest breaks as needed. 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 She would benefit from skilled PT to address the aforementioned impairments and improve tolerance to functional activities. Frequency and Duration: The patient will be seen 2/week for 6 weeks Short Term Goals: 1. Pt will report of having no stiffness in knee which will enable her to stand for 1 hour without difficulty in 2 weeks. 2. Pt will be able to move knee through full range of motion without pain which will enable her to negotiate stairs without difficulty in 3 weeks Planing Machine Operator Goals: 1. Pt will demonstrate an increase in muscle strength by 1 grade which will enable her to squat and bend her knee without difficulty in 6 weeks. 2. Pt will be independent with all HEP for symptom management and maintenance and return to PLOF in 6 weeks. Treatment Plan: Modalities to reduce pain, spasms and effusion. Manual therapy to restore motion and function. Therapeutic exercise to improve strength and flexibility. Neuromuscular re-education for posture and balance. Therapeutic activities to return to functional activities of daily living. Electronically signed by: Bernie Valentino PT DPT Please sign and return to therapist. Thank you for your referral.
--- NOTE | 2023-10-16 09:30 | MHC.PT.DC ---
[facility] [place] Office [place] Office [place] [address] Kristie Dick [address] [phone] F: [phone] F: [phone] F: [phone] F: [phone] Physical Therapy Discharge Report Diagnosis: s/p R ACL repair Date of Surgery: 06/20/23 Date of Evaluation: 09/03/23 Date of Discharge: 10/16/23 Treatments to Date: 3 Cancellations to Date: 0 No Shows to Date: 6 Discharge Status: Visit Non-compliance Discharge Summary: Shantel attended 3 PT visits and no showed 6. She is therefore being d/c from PT for non compliance. Electronically signed by: Bernie Valentino PT DPT Please sign and return to therapist. Thank you for your referral.
== END 2023-10-16 09:30 | disposition home or self-care (01) ==
LOC: HO.PT 14:00
PROVIDERS: PCP Registered Nurse; Visit Provider Physician Assistant
DX: S83.511A Sprain of anterior cruciate ligament of right knee, initial encounter (principal); Z98.890 Other specified postprocedural states
CPT/HCPCS: 97110; 97161; 97530

== ENCOUNTER 2024-02-21 16:03 | Outpatient (REF) | payer MEDICAID, SELFPAY ==
[2024-02-22 18:08] LABS: C. trachomatis RNA TMA NOT DETECTED (NOT DETECTED); Candida glabrata RNA NOT DETECTED (NOT DETECTED); Candida species RNA NOT DETECTED (NOT DETECTED); N. gonorrhoeae RNA TMA NOT DETECTED (NOT DETECTED); Trichomonas vaginalis RNA NOT DETECTED (NOT DETECTED)
== END 2024-02-21 16:04 | disposition home or self-care (01) ==
LOC: HO.HHCLNP 16:03
PROVIDERS: Visit Provider Advanced Practice Midwife
DX: N89.8 Other specified noninflammatory disorders of vagina (principal)
CPT/HCPCS: 36415; 81513; 87481; 87491; 87591; 87661

== ENCOUNTER 2025-06-29 16:50 | Emergency (ER) | payer OTHER, SELFPAY ==
--- NOTE | ~2025-06-29 | XR_ITS ---
CLINICAL HISTORY: pain 3 views lumbar spine Comparison: None provided Findings: Normal alignment. No acute fractures or dislocation. No significant degenerative change. IMPRESSION: No acute findings. This document has been electronically signed by: Braulio Jacobs MD on 06/29/2025 21:23:56
[2025-06-29 16:52] VITALS: BP 137/74; PULSE 81; RESP 20; TEMP 36.7; O2SAT 100; BMI 32.0
--- NOTE | 2025-06-29 16:59 | ED.GENADULT ---
HPI - General Adult General Chief complaint: Back Pain/Injury Stated complaint: back pain since last week Time Seen by Provider: 06/29/25 20:02 Source: patient Limitations: no limitations History of Present Illness ED Provider: Elyssa Patel PA-C HPI narrative: 29-year-old female presents with low back pain x6 days. Patient states pain originates in low back and radiates to mid back. Pain worse with movement. 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 The patient can not recall any recent patient encounters where she could have strained her back. Denies dysuria, hematuria or history of kidney stones. Denies nausea vomiting or fever. Denies radiation of pain into the leg, weakness of lower extremities, urinary retention or bowel incontinence, no paresthesia. Related Data Home Medications ?Medication ?Instructions ?Recorded ?Confirmed buprenorphine 2 mg-naloxone 0.5 mg 2 mg sublingual DAILY 02/14/23 06/20/23 sublingual film (Suboxone) Previous Rx's ?Medication ?Instructions ?Recorded acetaminophen 325 mg tablet 650 mg (2 x 325 mg) PO Q4-6H PRN 06/25/23 fever or pain 7 days #240 tabs ibuprofen 800 mg tablet 800 mg PO Q8H PRN pain 30 days #90 06/25/23 tabs doxycycline hyclate 100 mg capsule 100 mg PO BID 10 days #20 caps 07/27/23 ketorolac 10 mg tablet 10 mg PO Q6H PRN pain #20 tabs 06/29/25 methocarbamol 750 mg tablet 1,500 mg (2 x 750 mg) PO Q8H PRN 06/29/25 pain, moderate #24 tabs nitrofurantoin 100 mg PO Q12H 3 days #6 caps 06/29/25 monohydrate/macrocrystals 100 mg capsule (Macrobid) Allergies Allergy/AdvReac Type Severity Reaction Status Date / Time No Known Allergies Allergy Verified 06/29/25 16:53 Review of Systems Review of Systems: Yes all other systems are reviewed and are negative Constitutional: Constitutional: Denies fatigue and Denies fever(s) Cardiovascular: Cardiovascular: Denies chest pain and Denies dyspnea Respiratory: Respiratory: Denies dyspnea Gastrointestinal: Gastrointestinal: Denies abdominal pain, Denies nausea and Denies vomiting Genitourinary: Genitourinary: Denies hematuria, Denies dysuria and Denies flank pain Musculoskeletal: Musculoskeletal: Reports back pain, Denies muscle weakness, Denies radiating pain into limb and Denies tingling Neurologic: Denies tingling Endocrine: Endocrine: Denies fatigue [facility] Past Medical History Attestation statement: The following information was validated with the patient. Medical History Bipolar depression Surgical History Hx of knee surgery Social History Social History Alcohol intake: never Patient Tobacco Use Status: Current everyday Tobacco user Cigarettes Per Day: 8 Substance Use Type: Marijuana Current occupational status: employed Current occupation: [employer] Physical Exam ED Vital Signs: Vital Signs - 24 hr 06/29/25 22:11 Temperature 97.7 F Pulse Rate 60 Respiratory Rate 18 Blood Pressure 112/63 Pulse Oximetry 98 Oxygen Delivery Method Room Air BMI result Body Mass Index 32.0 Const Other: Alert well-appearing Orientation/consciousness: patient oriented x3 Back/Spine/Pelvis Other: No midline tenderness, pain elicited low to mid back with movement of torso Skin Other: Warm dry no rash Neuro General: patient oriented x3, gait normal, no focal motor deficits and CN's II-XI intact bilaterally Psych Other: Cooperative Course Course Course Narrative: RME: 29 year female presents to ED for low back pain that is she thought that was due to a. . Patient states back pain that is worse with movement. Patient states middle to left flank pain. Patient denies any IV drug use, urinary/bowel incontinence recent blunt trauma. Labs UA ordered Medications Administered Discontinued Medications Generic Name Dose Route Start Last Admin Trade Name Freq PRN Reason Stop Dose Admin Ketorolac Tromethamine 15 mg 06/29/25 20:18 06/29/25 20:44 Ketorolac Tromethamine 15 Mg/Ml Vial IM 06/29/25 20:19 15 mg ONCE ONE Administration Methocarbamol 1,500 mg 06/29/25 20:18 06/29/25 20:43 Methocarbamol 750 Mg Tablet PO 06/29/25 20:19 1,500 mg ONCE ONE Administration Nitrofurantoin Macrocrystals 100 mg 06/29/25 22:00 06/29/25 22:12 Nitrofurantoin Monohyd/M-Cryst 100 Mg Capsule PO 100 mg Q12H LAURA Administration Medical Decision Making Medical Decision Making [facility] Narrative: 29-year-old female presents with low back pain x6 days. Patient states pain originates in low back and radiates to mid back. Pain worse with movement. 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 The patient can not recall any recent patient encounters where she could have strained her back. Denies dysuria, hematuria or history of kidney stones. Denies nausea vomiting or fever. Denies radiation of pain into the leg, weakness of lower extremities, urinary retention or bowel incontinence, no paresthesia. No chronic issues History: Per patient I have considered the following differential diagnoses: Lumbar strain, lumbar radiculopathy, cauda equina, pyelonephritis, renal colic, urinary tract infection Plan: The patient's exam was consistent with musculoskeletal strain. She is not having radicular symptoms, she has no red flag signs symptoms concerning for cord compression. She also has no related symptoms to suggest a urinary tract infection versus pyelonephritis versus renal colic. Screening labs obtained, urinalysis is questionable for UTI, likely contaminated. Obtaining imaging of the back. We will be treating with Toradol and methocarbamol. Labs: No leukocytosis, not anemic, no electrolyte abnormality, not , questionable UTI Lumbar x-ray:3 views lumbar spine Comparison: None provided Findings: Normal alignment. No acute fractures or dislocation. No significant degenerative change. IMPRESSION: No acute findings. Differential Diagnosis Differential Diagnoses: The differential diagnosis associated with the presentation includes See medical decision-making Admission/Observation Consideration of admission/observation: Escalation of care including admission/observation considered Not applicable Lab Data [facility] Lab Attestation statement: I reviewed the patient's lab results. 06/29/25 17:19 06/29/25 17:19 Labs: Lab Results 06/29/25 06/29/25 Range/Units 17:19 19:47 WBC 8.2 (4.8-10.8) X10*3/uL RBC 3.91 L (4.20-5.50) X10*6/uL Hgb 12.4 (12.0-16.0) g/dl Hct 35.5 L (37.0-47.0) % MCV 90.8 (80.0-98.0) fL MCH 31.7 (27.0-33.0) pg MCHC 34.9 (31.0-35.0) g/dl RDW 11.6 (11.0-16.0) % Plt Count 217 (160-400) X10*3/uL MPV 10.2 (9.4-12.3) fL Immature Gran % (Auto) 0.2 (0.0-0.4) % Neut % (Auto) 59.6 (45-73) % Lymph % (Auto) 31.7 (20-40) % Wilson % (Auto) 5.0 (2-11) % Eos % (Auto) 3.0 (0-4) % Baso % (Auto) 0.5 (0-2) % Lymph # (Auto) 2.6 (1.2-4.9) X10*3/uL Wilson # (Auto) 0.4 (0.1-1.2) X10*3/uL Eos # (Auto) 0.3 (0.0-0.4) X10*3/uL Baso # (Auto) 0.0 (0.0-0.2) X10*3/uL Abs Immat Gran (auto) 0.02 (0.00-0.03) X10*3/uL Absolute Neuts (auto) 4.9 (2.0-8.3) x10*3/uL Absolute Nucleated RBC 0.000 (0.0-0.012) X10*3/uL Nucleated RBC % (auto) 0.0 (0.0-0.2) /100WBC Sodium 143 (135-145) mmol/L Potassium 3.3 (3.3-5.1) mmol/L Chloride 109 H (96-108) mmol/L Carbon Dioxide 25 (22-29) mmol/L Anion Gap 12 (12-20) BUN 11 (9-16) mg/dL Creatinine 0.93 (0.5-1.4) mg/dL Estim Creat Clear Calc 92.2 Estimated GFR > 60 Random Glucose 106 (60-115) mg/dL Calcium 8.4 (8.4-10.2) mg/dL Total Bilirubin 0.2 (0.0-1.0) mg/dL AST 22 (5-31) U/L ALT 24 (0-31) U/L Alkaline Phosphatase 57 (39-117) U/L Total Protein 6.7 (6.5-8.0) g/dL Albumin 4.0 (3.5-5.0) g/dL Lipase 28 (8-78) U/L Beta HCG, Quant < 2 mIU/mL Urine Color Dark Yellow Urine Appearance Clear Urine pH 6.0 (5.0-9.0) Ur Specific [place] >= 1.030 H (1.005-1.025) Urine Protein Negative (Neg-Trace) mg/dL Urine Glucose (UA) Negative (Negative) mg/dL Urine Ketones Trace (Negative) mg/dL Urine Blood Negative (Negative) Urine Nitrite Negative (Negative) Ur Leukocyte Esterase Small (1+) H (Negative) Urine RBC 0-2 (0-2) /HPF Urine WBC 6-10 H (0-5) /HPF Ur Squamous Epith Cells 11-20 (0-2) /HPF Urine Bacteria 1+ (None Seen) Hyaline Casts 0-2 (0-2) /LPF Radiology Impression Discussion of test interpretation with radiology: I have reviewed the radiologist's reading. Discharge Plan Discharge Clinical Impression: Back strain, Urinary tract infection Patient Disposition: Home, Self-Care Instructions: Urinary Tract Infection in Women (ED), Back Pain (ED) Additional Instructions: The x-ray of your back was normal, you do not have any acute abnormalities. Your exam was consistent with musculoskeletal strain. See home care instructions. You also have a questionable urinary tract infection, take the Macrobid as directed. Take the Toradol as needed for pain, use the methocarbamol as needed for pain as well. This medication will cause drowsiness it is a muscle relaxant, do not drive or operate machinery while taking the medication. Follow up with your primary care provider as needed. Prescriptions: New nitrofurantoin monohyd/m-cryst [Macrobid] 100 mg capsule 100 mg PO Q12H 3 Days Qty: 6 0RF Rx Instructions: must administer with a meal/food ketorolac 10 mg tablet 10 mg PO Q6H PRN (Reason: pain) Qty: 20 0RF Rx Instructions: maximum total duration of 5 days from all oral, intranasal, or parenteral formulations. The patient received an intramuscular dose of Toradol here in the emergency room methocarbamol 750 mg tablet 1,500 mg PO Q8H PRN (Reason: pain, moderate) Qty: 24 0RF No Action ibuprofen 800 mg tablet 800 mg PO Q8H PRN (Reason: pain) 30 Days Qty: 90 3RF acetaminophen 325 mg tablet 650 mg PO Q4-6H PRN (Reason: fever or pain) 7 Days Qty: 240 3RF doxycycline hyclate 100 mg capsule 100 mg PO BID 10 Days Qty: 20 0RF buprenorphine-naloxone [Suboxone] 2-0.5 mg film 2 mg sublingual DAILY Interventions: ED Discharge Assessment Last Done: 06/29/25 22:11 Discharge Date/Time: 06/29/25 22:19 Print Language: Irish
[2025-06-29 17:22] LABS: MANUAL DIFF FLAG NO
--- OUTSIDE RECORDS SUMMARY | 2025-06-29 17:24 | XMS_ITS | Encounter Summary ---
Author Organization [facility] Address [address] [place] [address] Phone Care Team Providers Care Heat Treater Head Name Role Phone Abhilash Rojas MD Primary Care Provider [phone] Encounter Details Date Type Department Care Team (Late st Contact Info) Description 06/14/2017 Conversion Encounter [facility] [place] [address] [place] [address] Social History Tobacco Use Types Packs/Day Years Used Date Smoking Tobacco: Never Assessed Comments Unknown Sex and Gender Information Value Date Recorded Sex Assigned at Not on file Legal Sex Female 4:40 PM EDT Gender Identity Not on file Sexual Orientation Not on file documented as of this encounter Plan of Treatment Not on file documented as of this encounter Visit Diagnoses Not on filedocumented in this encounter Care Teams Heat Treater Head Relationship Specialty Start Date End Date Abihlash Rojas MD [address] [place] [address] PCP - General 06/08/17 03/29/23 documented as of this encounter
--- OUTSIDE RECORDS SUMMARY | 2025-06-29 17:24 | XMS_ITS | Encounter Summary ---
Author Organization [employer] Address [address] [facility] [address] [place] [address] Care Team Providers Care Working Supervisor Name Role Phone Gemma Islas MD Primary Care Pro vider Reason for Visit * Reason Comments Med Refill Encounter Details Date Type Department Care Team ([facility] Contact Info) Description 03/18/2024 Refill [facility] [address] [place], [place] [phone] Huong Cohn CNM [address] [place] [address] Social History Tobacco Use Types Packs/Day Years Used Date Smoking Tobacco: Every Day Cigarettes Passive Smoke Exposure: Never Smokeless Tobacco: Never Alcohol Use Standard Drinks/Week Comments Not Currently 0 (1 standard drink = 0.6 oz pur e alcohol) Quit this year Depression Answer Date Recorded Patient Health Questionnaire-9 Score 8 03/30/2023 Housing Stability Answer Date Recorded What is your housing situation today? I have [place] 08/13/[address] you li ve. Do you have problems with any of the following? None of the above 08/13/2023 Food Insecurity Answer Date Recorded Within the past 12 months, y ou worried that your food would run out before you got money to buy more: Never True 08/13/2023 Within the past 12 months,th e food you bought just didn't last and you didn't have enough money to get more: Never True Transportation Answer Date Recorded In the past 12 months, has l ack of transportation kept you from medical appts, meetings, work or from getting things needed for daily living? No 08/13/2023 Utilities Answer Date Recorded In the past 12 months, has t he electric, gas, oil or water company threatened to shut off services in your home? No 08/13/2023 Depression Answer Date Recorded Patient Health Questionnaire-2 Score 2 03/30/2023 Comments No Sex and Gender Information Value Date Recorded Sex Assigned at Female 08/28/2022 10:29 AM EDT Legal Sex Female 10:29 AM EDT Gender Identity Female 08/28/2022 10:29 AM EDT Sexual Orientation Straight 08/28/2022 10 :29 AM EDT documented as of this encounter Plan of Treatment Not on file documented as of this encounter Visit Diagnoses Not on filedocumented in this encounter Additional Health Concerns Assessment Noted Time PHQ-9 Depression Total Score: 8 03/30/20 23 11:08 AM EDT documented as of this encounter Care Teams Working Supervisor Relationship Specialty Start Date End Date Gemma Islas MD [address] [place] [id number] PCP - General Internal Medicine 07/25/23 documented as of this encounter
--- OUTSIDE RECORDS SUMMARY | 2025-06-29 17:24 | XMS_ITS | Encounter Summary ---
Author Organization [facility] Address [address] [place] [phone] Phone Care Team Providers Care Mitten Sewer Name Role Phone Abhilash Rojas MD Primary Care Provider [phone] Encounter Details Date Type Department Care Team (Late st Contact Info) Description 08/23/2011 Documentation [facility] [place] [facility] [address] [place], [place] [phone] Family Medicine, Physician [address] [place], [place] [phone] Social History Tobacco Use Types Packs/Day Years [...] on filedocumented in this encounter Care Teams Mitten Sewer Relationship Specialty Start Date End Date Abhilash Rojas MD [address] [place] [address] PCP - General 06/08/17 03/29/23 documented as of this encounter
--- OUTSIDE RECORDS SUMMARY | 2025-06-29 17:24 | XMS_ITS | Encounter Summary ---
Author Organization [employer] Address [address] [place] [address] Care Team Providers Care Dye Blender Name Role Phone Aileen Ocampo Primary Care Provider Gemma Quevedo MD Primary Care Pro vider Reason for Visit * Reason Comments Med Refill Encounter Details Date Type Department Care Team ([facility] st Contact Info) Description 03/05/[address] [facility] [address] [place] [address] Teresa Wolf MD [address] [place] [address] Social History Tobacco Use Types Packs/Day Years Used Date Smoking Tobacco: Every Day Cigarettes Passive Smoke Exposure: Never Smokeless Tobacco: Never Comments No Sex and Gender Information Value Date Recorded Sex Assigned at Female 08/28/2022 10:29 AM EDT Legal Sex Female 10:29 AM EDT Gender Identity Female 08/28/2022 10:29 AM EDT Sexual Orientation Straight 08/28/2022 10 :29 AM EDT COVID-19 Exposure Response Date Recorded In the last 10 days, have yo u been in contact with someone who was confirmed or suspected to have Coronavirus/COVID-19? No / Unsure 02/26/2023 9:13 AM EDT documented as of this encounter Plan of Treatment Not on file documented as of this encounter Visit Diagnoses Not on filedocumented in this encounter Care Teams Dye Blender Relationship Specialty Start Date End Date Aileen Ocampo FNP PCP - General Family Medicine 04/20/22 07/24/23 Gemma Islas MD [address] [place] [id number] PCP - General Internal Medicine 07/25/23 documented as of this encounter
--- OUTSIDE RECORDS SUMMARY | 2025-06-29 17:24 | XMS_ITS | Encounter Summary ---
Author Organization [facility] Address [address] [place] [address] Phone Care Team Providers Care Auditor Supervisor Name Role Phone Abhilash Rojas MD Primary Care Provider [phone] Encounter Details Date Type Department Care Team (Late st Contact Info) Description 08/28/2011 Documentation [facility] [place] [facility] Medicine [address] [place], [place] [phone] Family Medicine, Physician [address] [place], [place] [phone] Social History Tobacco Use Types Packs/Day Years [...] on filedocumented in this encounter Care Teams Auditor Supervisor Relationship Specialty Start Date End Date Abhilash Rojas MD [address] [place] [address] PCP - General 06/08/17 03/29/23 documented as of this encounter
--- OUTSIDE RECORDS SUMMARY | 2025-06-29 17:24 | XMS_ITS | Clinical Summary ---
Author Organization [facility] Address [address] [place] [address] Phone Care Team Providers Care Nursing Home Director Name Role Phone Unavailable Primary Care Provider Unavailabl e Immunizations Immunization Administration Dates Next Due DTP 03/14/1995, 4,03/28/1994,12/26 DTaP 5 07/20/1998 HPV, Quadrivalent 04/29/2009 Hep B, ped/adol 07/28/1994,01/26/1994,1993 Hib (PRP-T) 01/26/1995, 4,03/28/1994,12/26 IPV 07/26/1998, 8,05/28/1994,03/28,01/26/1994 Influenza Split 09/01/2010 MMR 04/20/1998,01/08/1995 Meningococcal Conj (Menactra) MCV4P 01/14/2007 Td (adult) (MBL), 2 Lf tetan us toxoid, PF, adsorbed 08/03/2005 Tdap 04/29/2008 Varicella 04/29/2008,04/20/1998 Family History Relation Name Status Comments Father Alive Father: Alive a nd well Half-Sister Alive Half sister (P) : Alive and well Mother Mother: d Other Family history of Obesity, Family history of Diabetes mellitus, Family history of Asthma, Family history of Migraines, Family history of Elevated cholesterol, Family history of Strabismus/amblyopia Social History Tobacco Use Types Packs/Day Years Used Date Smoking Tobacco: Never Assessed Comments Unknown Sex and Gender Information Value Date Recorded Sex Assigned at Not on file Legal Sex Female 4:40 PM EDT Gender Identity Not on file Sexual Orientation Not on file Last Filed Vital Signs Vital Sign Reading Time Taken Comments Blood Pressure 102/60 09/01/2010 12:00 AM EDT Pulse - - Temperature - - Respiratory Rate - - Oxygen Saturation - - Inhaled Oxygen Concentration - - Weight 79.6 kg (175 lb 8 oz) 09/01/2010 12:00 AM EDT Height 157.5 cm (5' 2 ) 09/01/2010 12:00 AM EDT Body Mass Index 32.1 09/01/2010 12:00 AM EDT Plan of Treatment Health Maintenance Due Date Last Done Comments HPV Vaccines (2 - 3-dose series) 05/27/2009 04/29/2009 DTaP,Tdap,and Td Vaccines (7 - Td or Tdap) 04/29/2018 04/29/2008, 08/03/2005, 07/20/1998, Additional history exists COVID-19 Vaccine ( season) 2024 Influenza Vaccines (#1) 2025 09/01/2010 Hepatitis B Vaccines Completed 07/28/1994, 01/26/1994, 1993 HIB Vaccines Completed 01/26/1995, 04/30, 03/28/1994, Additional history exists MMR Vaccines Completed 04/20/1998, 01/08/1995 IPV Vaccines Completed 07/26/1998, 06/30, 05/28/1994, Additional history exists Meningococcal Vaccine Aged Out 01/14/2007 No bebeto elissa eligible based on patient's age to complete this topic Varicella Vaccines Completed 04/29/2008, 04/20/1998 Hepatitis A Vaccines Aged Out No long er eligible based on patient's age to complete this topic Men B Vaccine Aged Out No longer elig ible based on patient's age to complete this topic Pneumococcal Vaccine Aged Out No long er eligible based on patient's age to complete this topic
--- OUTSIDE RECORDS SUMMARY | 2025-06-29 17:24 | XMS_ITS | Encounter Summary ---
Author Organization [employer] Address [address] [facility] [address]t [place] [address] Care Team Providers Care Sleeping Room Cleaner Name Role Phone Aileen Ocampo MANAGER SHIPPING Primary Care Provider Gemma Quevedo MD Primary Care Pro vider Reason for Visit * Reason Onset Date Comments Triage 02/23/2023 Encounter Details Date Type Department Care Team ([facility] st Contact Info) Description 02/23/2023 Telephone [facility] [address] [place] [address] Aileen Ocampo FNP Triage Social History Tobacco Use Types Packs/Day Years Used Date Smoking Tobacco: Former Cigarettes Passive Smoke Exposure: Never Smokeless Tobacco: [...] AM EDT documented as of this encounter Miscellaneous Notes * Telephone Encounter - Shiela Roman RN - 02/23/2023 8:56 AM EDT Triage call Pt reports for last several days left eye has been getting yellowish drainage, this morning eye was stuck shut. Pt reports sclera is slightly pink. Right eye now is getting the same yellowish drainage as well. Left eye lid is swollen with redness present. Pt does wear glasses but, not contacts. Advised Pt to come to [facility] to be seen today and home care reviewed. Pt agreed with disposition. Protocol Used: Eye - Pus or Discharge (Adult) Protocol-Based Disposition: Callback or Video Visit by PCP Today Video visit not offered Positive Triage Question: * Eye with yellow or green discharge or eyelashes stick together, but NO standing order to call in antibiotic eye drops (Exception: Dennis; continue triage.) * All higher-acuity triage questions were negative Care Advice Discussed: * Reassurance and Education - Small Amount of Mucus or Pus * Eyelid Cleaning * Contact Lenses * Contagiousness * Reasons To Call Back - Pus increases in amount - Pus in corner of eye lasts over 3 days - Eyelid becomes red or swollen - You become worse * Telephone Encounter - Andreia Jon - 02/23/2023 8:42 AM EDT Symptom: Eye - Pus or Discharge Outcome: Talk to a nurse or provider within 15 minutes Reason: Can't open the eye The caller accepted this outcome documented in this encounter Plan of Treatment Not on file documented as of this encounter Visit Diagnoses Not on filedocumented in this encounter Care Teams Sleeping Room Cleaner Relationship Specialty Start Date End Date Aileen Ocampo FNP PCP - General Family Medicine 04/20/22 07/24/23 Gemma Islas MD [address] [place] [id number] PCP - General Internal Medicine 07/25/23 documented as of this encounter
--- OUTSIDE RECORDS SUMMARY | 2025-06-29 17:24 | XMS_ITS | Encounter Summary ---
Author Organization [facility] Address [address] [place] [phone] Phone Care Team Providers Care Overhead Crane Truck Loader Name Role Phone Abhilash Rojas MD Primary Care Provider [phone] Encounter Details Date Type Department Care Team (Late st Contact Info) Description 03/21/2012 Documentation [facility] [place] [address] [place], [place] [phone] Family Medicine, Physician [address] [place], [place] [phone] Social History Tobacco Use Types Packs/Day Years [...] on filedocumented in this encounter Care Teams Overhead Crane Truck Loader Relationship Specialty Start Date End Date Abhilash Rojas MD [address] [place] [address] PCP - General 06/08/17 03/29/23 documented as of this encounter
--- OUTSIDE RECORDS SUMMARY | 2025-06-29 17:24 | XMS_ITS | Encounter Summary ---
Author Organization [facility] Address [address] [place] [phone] Phone Care Team Providers Care Office Analyst Name Role Phone Abhilash Rojas MD Primary Care Provider [phone] Encounter Details Date Type Department Care Team (Late st Contact Info) Description 01/09/2012 Documentation [facility] [place] [address] [place], [place] [phone] Family Medicine, Physician [address] [place], [place] [phone] Social History Tobacco Use Types Packs/Day Years [...] on filedocumented in this encounter Care Teams Office Analyst Relationship Specialty Start Date End Date Abhilash Rojas MD [address] [place] [address] PCP - General 06/08/17 03/29/23 documented as of this encounter
--- OUTSIDE RECORDS SUMMARY | 2025-06-29 17:24 | XMS_ITS | Clinical Summary ---
Author Organization [employer] Address [address] [place] [address] [address] [place] [address] Care Team Providers Care Postbed Stitcher Name Role Phone Gemma Islas MD Primary Care Pro vider Allergies No known active allergies Medications * This document contains information received from the source organization and may not represent a complete record from that organization. Diclofenac Sodium 1 % gel Apply 2 g topically if needed in the morning and at bedtime (pain). 150 g 3 3 Active Additional Information Patient not taking.Reported on 07/25/2023 ketotifen (Zaditor) 0.025 % ophthalmic solution Administer 1 drop into both eyes 2 times daily. 30 mL 2 3 Active Additional Information Patient not taking.Reported on 07/25/2023 acetaminophen (Tylenol) 500 MG tablet Take 2 tablets (1,000 mg) by mouth every 6 (six) hours if needed for moderate pain or fever for up to 25 doses. 50 tablet 3 Active Additional Information Patient not taking.Reported on 07/25/2023 SUMAtriptan (Imitrex) 25 MG tabletIndicatio ns:Chronic migraine without aura without status migrainosus, not intractable Take 1 tablet (25 mg) by mouth 1 (one) time if needed for migraine for up to 1 dose. May repeat dose once in 2 hours if no relief. Do not exceed 2 doses in 24 hours. 9 tablet 3 Active Additional Information Patient not taking.Reported on 07/25/2023 Suboxone 2-0.5 MG per sublingual film TAKE 1 FILM SUBLINGUALLY EVERY DAY 3 Active Varenicline Tartrate 0.5 MG X 11 & 1 MG X 42 tablet therapy pack TAKE DIRECTED FOR TOBACCO CESSATION 3 Active ibuprofen 800 MG tablet Take 800 mg by mouth every 8 (eight) hours if needed. 3 Active Slynd 4 MG tablet TAKE 1 TABLET BY MOUTH EVERY DAY 84 tablet 5 Active Active Problems Problem Noted Date Diagnosed Date Depression 08/02/2023 Overview (08/02/2023): Pt reports she has good days and bad days. Was in therapy at [facility] with Alina. Lost contact. Needs new referral for new therapist. Denies SI Assessment & Plan (08/02/2023 5:34 PM EDT): Educated pt to call [facility] and request a new therapist. Will also refer to team again F/u PRN with new PCP Cold intolerance 08/02/2023 Overview (08/02/2023): Pt also reports she is cold all the time even in the summer : Chronic, never told a provider. Assessment & Plan (08/02/2023 5:37 PM EDT): Will check CBC, iron studies to rule out anemia Also TSH to rule out thyroid dysfunction Notify results If labs normal will f/u 3 mo with PCP If abnormal will treat F/u PRN Right ACL tear 06/10/2023 Overview (06/10/2023): Ortho appt 03/29/23: MRI showed right complete ACL tear partial MCL tear, S/P fall, DOI: 01/20/23. With a repeat fall on 03/28/23. Pain with daily activity, worse with twisting activities and weight-bearing, and localized to the medial aspect of her knee. She has been attending PT, with some relief Recommend right knee ACL reconstruction with allograft. Surgery scheduled. Continue physical therapy until surgery. Assessment & Plan (08/02/2023 5:38 PM EDT): Completed surgery Has f/u Ortho appt on 07/26/23 R anterior incision on knee is dehiscing Pt will discuss with Specialist F/u PRN Effusion, right knee 02/18/2023 Overview (05/02/2023): 03/29/23: OV- MRI Review Rt Knee Ortho right complete ACL tear partial MCL tear, S/P fall Laceration of left forearm 02/18/2023 At high risk for self harm 02/18/2023 Assessment & Plan (08/02/2023 5:34 PM EDT): Educated pt to call [facility] and request a new therapist. Will also refer to team again F/u PRN with new PCP Substance abuse 07/20/2022 Acanthosis nigricans 06/28/2017 Nicotine dependence 06/28/2017 Overview (08/02/2023): Has Chantix for smoking cessation. Has not started yet. Smoking 10 cigs/day Assessment & Plan (08/02/2023 5:33 PM EDT): Encouraged pt to start cutting back Educated on how to use chantix starter pack Pt is motivated to quit F/u PRN Encounters Date Type Department Care Team Description 05/26/2025 Telephone [facility] [address] [place] [phone] Gemma Islas MD CHART PREP 05/25/2025 Telephone [facility] [address] [place] [address] Gemma Islas MD Insurance from Last 3 Months Immunizations Immunization Administration Dates Next Due DTP 03/14/1995, 4,03/28/1994,12/26 DTaP, 5 pertussis antigens 07/20/1998 HPV, Quadrivalent 04/29/2009 Hep B, Adolescent or Pediatric 07/28/1994,1993,1993 Hib (PRP-T) 01/26/1995, 4,03/28/1994,12/26 IPV 07/26/1998, 8,05/28/1994,03/28,01/26/1994 Influenza injectable quadriv alent preservative free 07/20/2022,09/09/2019 Influenza, Split (incl. yeison fied surface antigen) 09/01/2010 MMR 04/20/1998,01/08/1995 Meningococcal MCV4P [id number]-135 01/14/2007 TD (adult), 2 Lf tetanus tox oid, preservative free, adsorbed 08/03/2005 Tdap 01/21/2022,04/29/2008 Varicella 04/29/2008,04/20/1998 Social History Tobacco Use Types Packs/Day Years Used Date Smoking Tobacco: Every Day Cigarettes Passive Smoke Exposure: Never Smokeless Tobacco: Never Tobacco Cessation:Ready to Q uit: Not Asked; Counseling Given: Not Answered Alcohol Use Standard Drinks/Week Comments Not Currently [...] Orientation Straight 08/28/2022 10 :29 AM EDT Last Filed Vital Signs Vital Sign Reading Time Taken Comments Blood Pressure 117/72 02/21/2024 11:22 AM EDT Pulse 57 02/21/2024 11:22 AM EDT Temperature 36.7 C (98 F) 07/25/2023 9:34 AM EDT Respiratory Rate 14 02/21/2024 11:2 2 AM EDT Oxygen Saturation 98% 02/21/2024 11: 22 AM EDT Inhaled Oxygen Concentration - - Weight 85.6 kg (188 lb 12.8 oz) 024 11:22 AM EDT Height 157.5 cm (5' 2 ) 02/21/2024 11:2 2 AM EDT Body Mass Index 34.53 02/21/2024 11:22 AM EDT Plan of Treatment Health Maintenance Due Date Last Done Comments Disability Screening 1993 Alcohol/Substance Use Screening 2005 Family Planning (PISQ) 2008 HPV Vaccines (2 - 3-dose series) 05/27/2009 04/29/2009 Pneumococcal Vaccine: Pediatrics (0 to 5 Years) and At-Risk Patients (6 to 49) Years (1 of 2 - PCV) 2012 Depression Screening 03/30/2024 03/30/2023, 03/30/20 COVID-19 Vaccine ( season) 2024 07/21/2022, 06/30/2022 SDOH Screening 07/18/2024 07/18/2023 Tobacco Screening 08/13/2024 08/13/2023 Influenza Vaccine (#1) 2025 , 09/09/2019, 09/01/2010 Cervical Cancer Screening 01/25/2026 HPV/Cotest 01/25/2026 Pap Smear 01/25/2026 01/25/2023, 12/31/2019 DTaP/Tdap/Td Vaccines (8 - Td or Tdap) 01/22/2032 01/21/2022, 04/29/2008, 08/03/2005, Additional history exists Zoster Vaccines (1 of 2) 2043 RSV Patients and Patients Aged 60 years or older (1 - 1-dose 75+ series) 2068 Hepatitis B Vaccines Completed 07/28/1994, 01/26/1994, 1993 HIB Vaccines Completed 01/26/1995, 04/30, 03/28/1994, Additional history exists IPV Vaccines Completed 07/26/1998, 06/30, 05/28/1994, Additional history exists Meningococcal Vaccine Aged Out 01/14/2007 No bebeto elissa eligible based on patient's age to complete this topic HIV Screening Completed 01/25/2023 Hepatitis C Screening Completed 01/25/2023 Hepatitis A Vaccines Aged Out No long er eligible based on patient's age to complete this topic Meningococcal B Vaccine Aged Out No l onger eligible based on patient's age to complete this topic RSV under 20 months Aged Out No longe r eligible based on patient's age to complete this topic Rotavirus Vaccines Aged Out No longer eligible based on patient's age to complete this topic Procedures Procedure Name Priority Date/Time Associated Diagnosis Comments HEPATITIS C AB W/REFL TO HCV RNA, QN, PCR Routine 01/25/2023 11:17 AM EDT Screening examination for venereal disease HIV 1/2 ANTIGEN/ANTIBODY, FOURTH GENERATION W/RFL Routine 01/25/2023 11:17 AM EDT Screening examination for venereal disease IMAGE-GUIDED PAP W/AGE BASED SCR,W/CT/NG/TRICH Routine 01/25/2023 10:35 AM EDT Cervical cancer screening from Last 3 Months or Most Recently Relevant to Health Maintenance Results * Hepatitis C Antibody with Reflex to HCV, RNA, Quantitative, Real-Time PCR (01/25/2023 11:17 AM EDT) Hepatitis C Antibody NON-REACT CHULA NON-REACT CHULA [employer] Index 0.03 <1.00 [employer] Comment: HCV antibody was non-reactive. There is no laboratory evidence of HCV infection. In most cases, no further action is required. However, if recent HCV exposure is suspected, a test for HCV RNA (test code 17442) is suggested. For additional information please refer to http://education.[employer]/faq/BEP47j9 (This link is being provided for informational/ educational purposes only.) Blood Venous blood specimen / Unknown 01/25/2023 11:17 AM EDT 01/25/2023 11:18 AM EDT Huong Moralesdaly [facility] BLOOD ORDERABLES Lisa l Result Performing Organization Address [facility] Co de Phone Number [address], [facility] [address] [employer] [place] [employer] [address] [place] [phone] * HIV-1/2 Antigen and Antibodies, Fourth Generation, with Reflexes (01/25/2023 11:17 AM EDT) [facility] HIV Antigen/Antibody, 4th Generation NON-REAC TIVE NON-REAC TIVE [employer] [place] [employer] Comment: HIV-1 antigen and HIV-1/HIV-2 antibodies were not detected. There is no laboratory evidence of HIV infection. PLEASE NOTE: This information has been disclosed to you from records whose confidentiality may be protected by state law. If your state requires such protection, then the state law prohibits you from making any further disclosure of the information without the specific written consent of the person to whom it pertains, or as otherwise permitted by law. A general authorization for the release of medical or other information is NOT sufficient for this purpose. For additional information please refer to http://education.[employer]/faq/YKR630 (This link is being provided for informational/ educational purposes only.) The performance of this assay has not been clinically validated in patients less than 2 years old. Blood Venous blood specimen / Unknown 01/25/2023 11:17 AM EDT 01/25/2023 11:18 AM EDT Huong Cohn [facility] BLOOD ORDERABLES Lisa l Result Performing Organization Address City/[facility]/ZIP Co de Phone Number [address], [place] [address] [employer] [place] [employer] [address] [place] [phone] * Image-Guided Pap with Age-Based Screening??with CT/NG,??Trichomonas (01/25/2023 10:35 AM EDT) Comment [employer] Comment: This order for age-based cervical cancer and STI screening follows ACOG guidelines(PB 168, 140, CBK761). See individual assays for performing site location. Clinical Information: ROUTINE SCREEN [employer] LMP: NONE GIVEN [employer] Prev. PAP: NONE GIVEN [employer] Prev. BX: NO [employer] SOURCE: None given [employer] Statement Of Adequacy: [employer] Comment: Satisfactory for evaluation. Endocervical/transformation zone component absent. Interpretation/Re sult: Negative for intraepithelial lesion or malignancy. [employer] Infection Shift in vaginal anthony suggestive of bacterial vaginosis. [employer] COMMENT: This Pap test has been evaluated with computer assisted technology. [employer] [place] [employer] Driver: Bo est [employer] Comment: JNA, CT(ASCP) CT screening location: [place] [address] (Always Message) [facility] [employer] Comment: EXPLANATORY NOTE: The Pap is a screening test for cervical cancer. It is not a diagnostic test and is subject to false negative and false positive results. It is most reliable when a satisfactory sample, regularly obtained, is submitted with relevant clinical findings and history, and when the Pap result is evaluated along with historic and current clinical information. Chlamydia trachomatis RNA, TMA, Urogenital NOT DETECTED NOT DETECTED [employer] Neisseria gonorrhoeae RNA, TMA, Urogenital NOT DETECTED NOT DETECTED [employer] (Always Message) [employer] Comment: The analytical performance characteristics of this assay, when used to test SurePath(TM) specimens have been determined by [employer]. The modifications have not been cleared or approved by the FDA. This assay has been validated pursuant to the CLIA regulations and is used for clinical purposes. For additional information, please refer to https://education.[employer]/faq/DWB654 (This link is being provided for information/ educational purposes only.) Trichomonas vaginalis, QL, TMA, PAP Vial NOT DETECTED NOT DETECTED [employer] Comment: The analytical performance characteristics of this assay have been determined by [employer]. The modifications have not been cleared or approved by the FDA. This assay has been validated pursuant to the CLIA regulations and is used for clinical purposes. For additional information, please refer to http://education.[employer]/ faq/Trichomonastma (This link is being provided for information/ educational purposes only.) Cytology specimen container (physical object) 01/25/2023 10:35 AM EDT 01/26/2023 3:23 AM EDT Huong Cohn [facility] CYTOLOGY ORDERABLES F inal Result [employer] [address], [place] [address] [employer] [facility]% [address] [place] [address] from Last 3 Months or Most Recently Relevant to Health Maintenance Care Teams Postbed Stitcher Relationship Specialty Start Date End Date Gemma Islas MD [address] [place] [phone] PCP - General Internal Medicine 07/25/23
--- OUTSIDE RECORDS SUMMARY | 2025-06-29 17:24 | XMS_ITS | Encounter Summary ---
Author Organization [employer] Address [address] [facility] 7t [place] [address] Care Team Providers Care Environmental Professional Name Role Phone Gemma Islas MD Primary Care Pro vider Reason for Visit * Reason Comments Med Refill Encounter Details Date Type Department Care Team ([facility] st Contact Info) Description 02/15/2024 Refill [facility] [address] [place], [place] [phone] Huong Cohn CNM [address] [place] [address] Social History Tobacco Use Types Packs/Day Years [...] documented as of this encounter Care Teams Environmental Professional Relationship Specialty Start Date End Date Gemma Islas MD [address] [place] [phone] PCP - General Internal Medicine 07/25/23 documented as of this encounter
[2025-06-29 17:28] LABS: Hematocrit 35.5 % (37.0-47.0); Hemoglobin 12.4 g/dl (12.0-16.0); Imm Gran Abs Auto 0.02 X10*3/uL (0.00-0.03); Imm Gran Pct Auto 0.2 % (0.0-0.4); Lymphocytes Absolute Auto 2.6 X10*3/uL (1.2-4.9); Mean Corpuscular HGB Conc 34.9 g/dl (31.0-35.0); Mean Corpuscular Hemoglobin 31.7 pg (27.0-33.0); Mean Corpuscular Volume 90.8 fL (80.0-98.0); NRBC Abs Auto 0.000 X10*3/uL (0.0-0.012); NRBC Pct Auto 0.0 /100WBC (0.0-0.2); Platelet Count 217 X10*3/uL (160-400); Red Blood Count 3.91 X10*6/uL (4.20-5.50); White Blood Count 8.2 X10*3/uL (4.8-10.8)
[2025-06-29 17:53] LABS: Alanine Aminotransferase 24 U/L (0-31); Albumin Level 4.0 g/dL (3.5-5.0); Alkaline Phosphatase 57 U/L (39-117); Anion Gap 12 (12-20); Aspartate Amino Transferase 22 U/L (5-31); Blood Urea Nitrogen 11 mg/dL (9-16); Calcium 8.4 mg/dL (8.4-10.2); Carbon Dioxide 25 mmol/L (22-29); Chloride 109 mmol/L (96-108); Creatinine Clr Calc Pharmacy 92.2; Estimated Glomerular Filt Rate > 60; Lipase 28 U/L (8-78); Potassium 3.3 mmol/L (3.3-5.1); Sodium 143 mmol/L (135-145); Total Protein 6.7 g/dL (6.5-8.0)
[2025-06-29 19:37] VITALS: BP 102/59; PULSE 67; TEMP 36.6; O2SAT 97
--- NOTE | 2025-06-29 19:45 | MHC.EDTECH ---
@1940 Hot pack given to patient for lumbar pain
[2025-06-29 20:01] LABS: Appearance Urine Clear; Glucose Urine UA Negative (Negative); PH 6.0 (5.0-9.0); Specific Gravity - Urine >= 1.030 (1.005-1.025); UMIC TRIGGER UACC YES
[2025-06-29 20:03] LABS: UACC Culture Trigger YES
[2025-06-29 22:11] VITALS: BP 112/63; PULSE 60; RESP 18; TEMP 36.5; O2SAT 98
== END 2025-06-29 22:19 | disposition home or self-care (01) ==
PROVIDERS: Physician Assistant; Emergency Provider Emergency Medicine
DX: S39.012A Strain of muscle, fascia and tendon of lower back, initial encounter (principal); X58.XXXA Exposure to other specified factors, initial encounter; Y93.9 Activity, unspecified; Y92.9 Unspecified place or not applicable; Y99.9 Unspecified external cause status; N39.0 Urinary tract infection, site not specified; F12.90 Cannabis use, unspecified, uncomplicated
CPT/HCPCS: 36415; 72100; 80053; 81001; 81003; 83690; 84702; 85025; 87086; 96372; 99284; J1885

== ENCOUNTER → 2025-06-29 20:18 | Outpatient (BNV) | payer SELFPAY | PROVIDERS: Emergency Provider Emergency Medicine; Visit Provider Radiology Diagnostic Radiology | DX: M54.50 Low back pain, unspecified (principal) | CPT/HCPCS: 72100 ==

== ENCOUNTER 2025-07-31 15:47 | Outpatient (REF) | payer OTHER, SELFPAY ==
--- OUTSIDE RECORDS SUMMARY | 2025-07-31 15:50 | XMS_ITS | Encounter Summary ---
Author Organization [employer] Address [address] [facility] [address]t [place] [address] Care Team Providers Care Formal Waiter/Waitress Name Role Phone Gemma Islas MD Primary Care Pro vider Reason for Visit * Reason Comments Med Refill Encounter Details Date Type Department Care Team ([facility] st Contact Info) Description 03/18/2024 Refill [facility] [address] [place] [address] Huong Cohn CN [address] [place] [address] Social History Tobacco Use Types Packs/Day Years [...] documented as of this encounter Care Teams Formal Waiter/Waitress Relationship Specialty Start Date End Date Gemma Islas MD [address] [place] [phone] PCP - General Internal Medicine 07/25/23 documented as of this encounter
--- OUTSIDE RECORDS SUMMARY | 2025-07-31 15:50 | XMS_ITS | Encounter Summary ---
Author Organization [employer] Address [address] [place] [address] [address]t [place] [address] Care Team Providers Care Learning Support Resource Room Teacher Name Role Phone Gemma Islas MD Primary Care Pro vider Encounter Details Date Type Department Care Team ([facility] st Contact Info) Description 07/31/2025 Orders Only [facility] [address] [place] [address] Gemma Islas MD [address] [place] [address] Amenorrhea (Primary Dx) Social History Tobacco Use Types Packs/Day Years [...] as of this encounter Plan of Treatment Scheduled Orders Name Type Priority Associated Diagnoses Orde r Schedule hCG, Total, Quantitative Lab Routine Amenorrhea Expected: 07/31/2025 (Approximate), Expires: 07/31/2026 documented as of this encounter Visit Diagnoses Diagnosis Amenorrhea- Primary Absence of menstruation documented in this encounter Additional Health Concerns Assessment Noted Time PHQ-9 Depression Total Score: 8 03/30/20 23 11:08 AM EDT documented as of this encounter Care Teams Learning Support Resource Room Teacher Relationship Specialty Start Date End Date Gemma Islas MD [address] [place] [phone] PCP - General Internal Medicine 07/25/23 documented as of this encounter
--- OUTSIDE RECORDS SUMMARY | 2025-07-31 15:50 | XMS_ITS | Clinical Summary ---
Author Organization [employer] Address [address] [facility] 7t [place] [address] Care Team Providers Care Engineering Lab Technician Name Role Phone Gemma Islas MD Primary [...] and bad days. Was in therapy at [facility] with Alina. Lost contact. Needs new referral for new therapist. Denies SI Assessment & Plan (08/02/2023 5:34 PM EDT): Educated pt to call [facility] and request a new therapist. Will [...] 5:34 PM EDT): Educated pt to call [facility] and request a new therapist. Will also refer to team again F/u PRN with new PCP Substance abuse ([facility]) 07/20/2022 Acanthosis nigricans 06/28/2017 Nicotine dependence 06/28/2017 Overview (08/02/2023): Has Chantix for smoking cessation. Has not started yet. Smoking 10 cigs/day Assessment & Plan (08/02/2023 5:33 PM EDT): Encouraged pt to start cutting back Educated on how to use chantix starter pack Pt is motivated to quit F/u PRN Encounters Date Type Department Care Team Description 07/31/2025 Orders Only [address] [address] Gemma Islas MD Amenorrhea (Primary Dx) 07/31/[address] [address] Gemma Islas MD Lab Orders; Appointment Request 05/26/[address] [address] Gemma Islas MD CHART PREP 05/25/[address] [address] Gemma Islas MD Insurance from Last 3 [...] PCV) 2012 Depression Screening 03/30/2024 03/30/2023, 03/30/20 SDOH Screening 07/18/2024 07/18/2023 Tobacco Screening 08/13/2024 08/13/2023 COVID-19 Vaccine ( season) 2025 07/21/2022, 06/30/2022 Influenza Vaccine (#1) 2025 , 09/09/2019, 09/01/2010 [...] Hepatitis C Antibody NON-REACT CHULA NON-REACT CHULA [facility] [place] [employer] Index 0.03 <1.00 [facility] Comment: HCV antibody was non-reactive. There is no laboratory evidence of HCV infection. In most cases, no further action is required. However, if recent HCV exposure is suspected, a test for HCV RNA (test code 33589) is suggested. For additional information please refer to http://Artvalue.com.Sijibang.com/faq/TSZ48c6 (This link is being provided for informational/ educational purposes only.) Blood Venous blood specimen / Unknown 01/25/2023 11:17 AM EDT 01/25/2023 11:18 AM EDT Huong Cohn [facility] LAB BLOOD ORDERABLES Lisa pendleton Result [facility] [address], [place] [address] [facility] [place] [employer] [address] [place] [address] * HIV-1/2 Antigen and Antibodies, Fourth Generation, with Reflexes (01/25/2023 11:17 AM EDT) Pathologist [facility] HIV Antigen/Antibody, 4th Generation NON-REAC TIVE NON-REAC TIVE [facility] [place] [employer] Comment: HIV-1 antigen and HIV-1/HIV-2 antibodies were [...] purpose. For additional information please refer to http://Artvalue.com.Sijibang.com/faq/WDK096 (This link is being provided for informational/ educational purposes only.) The performance of this assay has not been clinically validated in patients less than 2 years old. Blood Venous blood specimen / Unknown 01/25/2023 11:17 AM EDT 01/25/2023 11:18 AM EDT Huong Cohn [facility] LAB BLOOD ORDERABLES Lisa pendleton Result [facility] [address] [facility], [place] [address] [employer] [address] [place] [address] * Image-Guided Pap with Age-Based Screening??with CT/NG,??Trichomonas (01/25/2023 10:35 AM EDT) Comment [employer] Comment: This order for age-based cervical cancer and STI screening follows ACOG guidelines(PB 168, 140, WOX217). See individual assays for performing site location. Clinical Information: ROUTINE SCREEN [employer] LMP: NONE GIVEN [email or web address] Diagnost Prev. PAP: NONE GIVEN [employer] ([employer] Diagnost Prev. BX: NO [employer] SOURCE: None given [employer] Statement Of Adequacy: [employer] Comment: Satisfactory for evaluation. Endocervical/transformation zone component absent. Interpretation/Re sult: Negative for intraepithelial lesion or malignancy. [employer] Infection Shift in vaginal anthony suggestive of bacterial vaginosis. [employer] COMMENT: This Pap test has been evaluated with computer assisted technology. [employer] Debt Collection Specialist: Bo est Ayeah Gamest Comment: JNA, CT(ASCP) CT screening location: [address] [address] (Always Message) [facility] Ayeah Gamest Comment: EXPLANATORY NOTE: The Pap is a [...] RNA, TMA, Urogenital NOT DETECTED NOT DETECTED [facility] [place] [employer] Neisseria gonorrhoeae RNA, TMA, Urogenital NOT DETECTED NOT DETECTED [facility] [place] [employer] (Always Message) [employer] [place] [employer] Comment: The analytical performance characteristics of this assay, when used to test SurePath(TM) specimens have been determined by [facility]. The modifications have not been cleared or approved by the FDA. This assay has been validated pursuant to the CLIA regulations and is used for clinical purposes. For additional information, please refer to https://Artvalue.com.Sijibang.com/faq/RAY041 (This link is being provided for information/ educational purposes only.) Trichomonas vaginalis, QL, TMA, PAP Vial NOT DETECTED NOT DETECTED [facility] [place] [employer] Comment: The analytical performance characteristics of this assay have been determined by [facility]. The modifications have not been cleared or approved by the FDA. This assay has been validated pursuant to the CLIA regulations and is used for clinical purposes. For additional information, please refer to http://Artvalue.com.[email or web address]/ faq/Trichomonastma (This link is being provided for information/ educational purposes only.) Cytology specimen container (physical object) 01/25/2023 10:35 AM EDT 01/26/2023 3:23 AM EDT Huong Cohn [facility] LAB CYTOLOGY ORDERABLES F inal Result [facility] [address], [place] [address] [facility] [place] [employer] [address] [place] [address] from Last 3 Months or Most Recently Relevant to Health Maintenance Care Teams Engineering Lab Technician Relationship Specialty Start Date End Date Gemma Islas MD [address] [place] [address] PCP - General Internal Medicine 07/25/23
--- OUTSIDE RECORDS SUMMARY | 2025-07-31 15:50 | XMS_ITS | Encounter Summary ---
Author Organization [employer] Address [address] [place] [address] 7t [place] [address] Care Team Providers Care Project Management It Specialist Name Role Phone Gemma Islas MD Primary Care Pro vider Reason for Visit * Reason Onset Date Comments Lab Orders 07/31/2025 Appointment Request 07/31/2025 Encounter Details Date Type Department Care Team (Late st Contact Info) Description 07/31/2025 Telephone [facility] MEDICINE [address] [place], [place] [phone] Gemma Islas MD [address] [place], [place] [phone] Lab Orders; Appointment Request Social History Tobacco Use Types Packs/Day Years [...] your housing situation today? I have nell brett 08/13/[address] you li [...] encounter Miscellaneous Notes * Telephone Encounter - Pam Wang RN - 07/31/2025 3:34 PM EDT Returned call to pt, pt denies pain with urination, burning sensation, urgency, flank or abdominal pain. She denies taking any medications, states she no longer takes suboxone and reports being cleanfor 3 years. She reports using marijuana. Educated her to avoid alcohol, all drugs including marijuana in . Educated her on need for vitamins and OB referral if . Pt states she will go to lab today for ordered labwork. Reviewed with her [facility] hours of operation, including Sunday clinic and to call back as needed. Pt verbalized understanding. * Telephone Encounter - Pam Wang RN - 07/31/2025 2:42 PM EDT Telephone call returned to pt. Pt reports faint positive home test 07/29/25 and 07/31/25.Last menstrual period was 06/25/25, last few days. She reports increased urinary frequency, denies breast tenderness, nausea/vomiting. She is asking for blood work to confirm and to inform her plan, advised her will send message to PCP to advise on this. Pt verbalized understanding. * Telephone Encounter - Florina Lambert - 07/31/2025 9:16 AM EDT Tc from pt requesting a blood lab order to confirm . Pt reported taking a home test which came back positive. Pt also would like an following appointment after an the lab Contact pt at [phone] documented in this encounter Plan of Treatment Not on file documented as of this encounter Visit Diagnoses Not on filedocumented in this encounter Additional Health Concerns Assessment Noted Time PHQ-9 Depression Total Score: 8 03/30/20 23 11:08 AM EDT documented as of this encounter Care Teams Project Management It Specialist Relationship Specialty Start Date End Date Gemma Islas MD [address] [place] [address] PCP - General Internal Medicine 07/25/23 documented as of this encounter
--- OUTSIDE RECORDS SUMMARY | 2025-07-31 15:50 | XMS_ITS | Encounter Summary ---
Author Organization [facility] Address [address] [place] [address] Phone Care Team Providers Care Genetic Counsellor Name Role Phone Abhilash Rojas MD Primary Care Provider [phone] Encounter Details Date Type Department Care Team (Late st Contact Info) Description 06/14/2017 Conversion Encounter [facility] [place] [address] [place] [address] Social History Tobacco Use Types Packs/Day Years [...] on filedocumented in this encounter Care Teams Genetic Counsellor Relationship Specialty Start Date End Date Abhilash Rojas MD [address] [place] [address] PCP - General 06/08/17 03/29/23 documented as of this encounter
--- OUTSIDE RECORDS SUMMARY | 2025-07-31 15:50 | XMS_ITS | Clinical Summary ---
Author Organization [facility] Address [address] [place] [address] Phone Care Team Providers Care Lending Consultant Name Role Phone Unavailable Primary Care Provider [...] 04/29/2018 04/29/2008, 08/03/2005, 07/20/1998, Additional history exists Influenza Vaccines (#1) 2025 09/01/2010 COVID-19 Vaccine ( season) 2025 Hepatitis B Vaccines Completed 07/28/1994, 01/26/1994, 1993 [...]
--- OUTSIDE RECORDS SUMMARY | 2025-07-31 15:50 | XMS_ITS | Encounter Summary ---
Author Organization [facility] Address [address] [place] [address] Phone Care Team Providers Care Salt Plant Operator Name Role Phone Abhilash Rojas MD Primary Care Provider [phone] Encounter Details Date Type Department Care Team (Late st Contact Info) Description 08/23/2011 Documentation [facility] [place] Family Medicine [address] [place], [place] [phone] Family Medicine, Physician [address] [place], [place] [address] Social History Tobacco Use Types Packs/Day Years [...] on filedocumented in this encounter Care Teams Salt Plant Operator Relationship Specialty Start Date End Date Abhilash Rojas MD [address] [place] [address] PCP - General 06/08/17 03/29/23 documented as of this encounter
--- OUTSIDE RECORDS SUMMARY | 2025-07-31 15:50 | XMS_ITS | Encounter Summary ---
Author Organization [facility] Address [address] [place] [address] Phone Care Team Providers Care Adult Family Home Program Manager Name Role Phone Abhilash Rojas MD Primary Care Provider [phone] Encounter Details Date Type Department Care Team (Late st Contact Info) Description 08/28/2011 Documentation [facility] [place] Family Medicine [address] [place], [place] [phone] Family Medicine, Physician [address] [place], [place] [address] Social History Tobacco Use Types Packs/Day Years [...] on filedocumented in this encounter Care Teams Adult Family Home Program Manager Relationship Specialty Start Date End Date Abhilash Rojas MD [address] [place] [address] PCP - General 06/08/17 03/29/23 documented as of this encounter
--- OUTSIDE RECORDS SUMMARY | 2025-07-31 15:50 | XMS_ITS | Encounter Summary ---
Author Organization [employer] Address [address] [facility] 7t [place] [address] Care Team Providers Care Engineering Designer Name Role Phone Gemma Islas MD Primary Care Pro vider Reason for Visit * Reason Comments Med Refill Encounter Details Date Type Department Care Team ([facility] st Contact Info) Description 02/15/2024 Refill [facility] MEDICINE [address] [place] [address] Huong Cohn CN [address] [place] [address] Social History Tobacco Use Types Packs/Day Years [...] documented as of this encounter Care Teams Engineering Designer Relationship Specialty Start Date End Date Gemma Islas MD [address] [place] [address] PCP - General Internal Medicine 07/25/23 documented as of this encounter
--- OUTSIDE RECORDS SUMMARY | 2025-07-31 15:50 | XMS_ITS | Encounter Summary ---
Author Organization [facility] Address [address] [place] [address] Phone Care Team Providers Care Cut In Worker Name Role Phone Abhilash Rojas MD Primary Care Provider [phone] Encounter Details Date Type Department Care Team (Late st Contact Info) Description 01/09/2012 Documentation [facility] [place] [address] [place], [place] [phone] Family Medicine, Physician [address] [place], [place] [address] Social History Tobacco Use Types Packs/Day Years [...] on filedocumented in this encounter Care Teams Cut In Worker Relationship Specialty Start Date End Date Abhilash Rojas MD [address] [place] [address] PCP - General 06/08/17 03/29/23 documented as of this encounter
--- OUTSIDE RECORDS SUMMARY | 2025-07-31 15:50 | XMS_ITS | Encounter Summary ---
Author Organization [facility] Address [address] [place] [address] Phone Care Team Providers Care Sonographer Name Role Phone Abhilash Rojas MD Primary Care Provider [phone] Encounter Details Date Type Department Care Team (Late st Contact Info) Description 03/21/2012 Documentation [facility] [place] Family Medicine [address] [place], [place] [phone] Family Medicine, Physician [address] [place], [place] [address] Social History Tobacco Use Types Packs/Day Years [...] on filedocumented in this encounter Care Teams Sonographer Relationship Specialty Start Date End Date Abhilash Rojas MD [address] [place] [address] PCP - General 06/08/17 03/29/23 documented as of this encounter
--- OUTSIDE RECORDS SUMMARY | 2025-07-31 15:50 | XMS_ITS | Encounter Summary ---
Author Organization [employer] Address [address] [place] [address] 7t [place] [address] Care Team Providers Care Periodontal Assistant Name Role Phone Aileen Ocampo Primary Care Provider Gemma Quevedo MD Primary Care Pro vider Reason for Visit * Reason Onset Date Comments Triage 02/23/2023 Encounter Details Date Type Department Care Team (Late st Contact Info) Description 02/23/2023 Telephone [facility] MEDICINE [address] [place] [address] Aileen Ocampo FNP Triage Social History Tobacco [...] not contacts. Advised Pt to come to [facility] to be seen today and home care [...] on filedocumented in this encounter Care Teams Periodontal Assistant Relationship Specialty Start Date End Date Aileen Ocampo FNP PCP - General Family Medicine 04/20/22 07/24/23 Gemma Islas MD [address] [place] [phone] PCP - General Internal Medicine 07/25/23 documented as of this encounter
--- OUTSIDE RECORDS SUMMARY | 2025-07-31 15:50 | XMS_ITS | Encounter Summary ---
Author Organization [facility] Address [address] [facility] 7t [place] [address] Care Team Providers Care Diesel Pile Hammer Operator Name Role Phone TerrenceAileen diaz Lilly RAIL DOWELING MACHINE OPERATOR Primary Care Provider Gemma Quevedo MD Primary Care Pro vider Reason for Visit * Reason Comments Med Refill Encounter Details Date Type Department Care Team (Late st Contact Info) Description 03/05/2023 Refill [facility] [address] [place] [address] Teresa Wolf MD [address] [place], [place] [phone] Social History Tobacco Use Types Packs/Day Years [...] on filedocumented in this encounter Care Teams Diesel Pile Hammer Operator Relationship Specialty Start Date End Date Terrence, Aileen Lilly, RAIL DOWELING MACHINE OPERATOR PCP - General Family Medicine 04/20/22 07/24/23 Gemma Islas MD [address] [place] [address] PCP - General Internal Medicine 07/25/23 documented as of this encounter
== END 2025-07-31 15:48 | disposition home or self-care (01) ==
LOC: HO.HHCL 15:47
PROVIDERS: PCP Student in an Organized Health Care Education/Training Program; Visit Provider Student in an Organized Health Care Education/Training Program
DX: N91.2 Amenorrhea, unspecified (principal); Z32.00 Encounter for pregnancy test, result unknown
CPT/HCPCS: 36415; 84702